=== PATIENT | male | born 1950 | race Caucasian/White ===

== ENCOUNTER 2018-02-22 09:53 | Emergency (ER) | payer OTHER, MEDICARE ==
[2018-02-22] MEDS ORDERED: FAMOTIDINE 20 MG/2 ML VIAL IV STA (10:20)
[2018-02-22] MEDS ORDERED: diphenhydrAMINE 50 MG/ML 1 ML VIAL IVP STA (10:20)
[2018-02-22] MEDS ORDERED: methylPREDNISolone SOD SUCCI 125 MG/2 ML VIAL IV STA (10:20)
[2018-02-22] MEDS ORDERED: RX INFO: IV CONTRAST WAS GIVEN 1 EACH MISC MISCELLANE PRN (10:20)
--- NOTE | 2018-02-22 10:23 | ED ---
General Adult HPI - General Chief complaint: Shortness of Breath Stated complaint: Chest tightness Time Seen by Provider: 02/22/18 10:00 Source: patient, RN notes reviewed, old records reviewed Mode of arrival: ambulatory Limitations: no limitations - History of Present Illness Initial comments: 67-year-old male presenting for evaluation of chest tightness. Pain began at rest on Thursday which is 3 days ago. Pain is been fairly constant since that time. Is associated with some dyspnea. No cough or fever. No abdominal pain. No nausea vomiting or diarrhea. Patient does report some pain in his shoulders. He has remote history of aortic dissection status post repair. Pain is not similar to his dissection. He was seen by his primary care physician this morning and sent to the ER for evaluation. - Related Data Home Medications Medication Instructions Recorded Confirmed Atenolol [Tenormin] 50 mg PO DAILY 07/05/14 02/22/18 Bumetanide [BUMEX] 1 mg PO DAILY 07/05/14 02/22/18 Fenofibrate,Micronized 134 mg PO DAILY 07/05/14 02/22/18 [Fenofibrate] Potassium Chloride [Klor-Con 10] 10 meq PO DAILY 07/05/14 02/22/18 amLODIPine BESYLATE/BENAZEPRIL 1 tab PO DAILY 07/05/14 02/22/18 [Amlodipine-Benazepril 5-20 mg] Apixaban [Eliquis] 5 mg PO BID 02/28/15 02/22/18 Peoa-3 Fatty Acids/Fish Oil [Fish 3,000 mg PO DAILY 02/28/15 02/22/18 Oil 1,000 mg Softgel] Aspirin 325 mg PO DAILY 02/22/18 02/22/18 Gabapentin [Neurontin] 600 mg PO TID 02/22/18 02/22/18 Allergies Allergy/AdvReac Type Severity Reaction Status Date / Time iodine Allergy Rash/Hives Verified 02/22/18 10:43 Review of Systems ROS Statement: Those systems with pertinent positive or pertinent negative responses have been documented in the HPI. ROS Other: All systems not noted in ROS Statement are negative. Past Medical History Past Medical History: Atrial Fibrillation, Hyperlipidemia, Hypertension, Osteoarthritis (OA) Additional Past Medical History / Comment(s): 03/08/15 Pt admitted to floor s/p Total L knee arthroplasty. Other HX: aortic aneursym, fx lt ribs & clavicle History of Any Multi-Drug Resistant Organisms: None Reported Past Surgical History: Cholecystectomy, Joint Replacement, Tonsillectomy Additional Past Surgical History / Comment(s): 03/08/15 -TKA, AAA repair, "top and bottom of heart" repair, pts. states he had aorta repair Past Anesthesia/Blood Transfusion Reactions: No Reported Reaction Past Psychological History: No Psychological Hx Reported Smoking Status: Former smoker Past Alcohol Use History: Occasional Past Drug Use History: None Reported - Past Family History Father Family Medical History: COPD Additional Family Medical History / Comment(s): Father of emphysema. He was a smoker. Mother Family Medical History: Congestive Heart Failure (CHF) Additional Family Medical History / Comment(s): Mother of CHF. General Exam Limitations: no limitations General appearance: alert, in no apparent distress Head exam: Present: atraumatic, normocephalic Eye exam: Present: normal appearance, PERRL, EOMI ENT exam: Present: normal exam Neck exam: Present: normal inspection. Absent: tenderness, meningismus Respiratory exam: Present: normal lung sounds bilaterally. Absent: respiratory distress, wheezes Cardiovascular Exam: Present: regular rate, irregular rhythm GI/Abdominal exam: Present: soft, distended. Absent: tenderness Extremities exam: Present: normal inspection, normal capillary refill. Absent: pedal edema, joint swelling, calf tenderness Back exam: Present: normal inspection, full ROM. Absent: tenderness Neurological exam: Present: alert, oriented X3, CN II-XII intact. Absent: motor sensory deficit Psychiatric exam: Present: normal affect, normal mood Skin exam: Present: warm, dry, intact. Absent: cyanosis, diaphoretic Course Vital Signs 02/22/18 02/22/18 02/22/18 09:56 10:47 13:07 Temperature 96.9 F L 97.5 F L Pulse Rate 71 67 82 Respiratory 26 H 20 19 Rate Blood Pressure 142/72 142/79 143/78 O2 Sat by Pulse 99 96 94 L Oximetry 02/22/18 14:16 Temperature Pulse Rate 81 Respiratory 18 Rate Blood Pressure 142/75 O2 Sat by Pulse 97 Oximetry - Reevaluation(s) Reevaluation #1: 02/22/18 14:26 On reevaluation, patient denies any symptoms, no dyspnea, no chest tightness. EKG Findings - EKG Comments: EKG Findings:: EKG, atrial fibrillation, rate of 71, QRS duration 92, QTC 445, no ST segment elevation, no definitive signs of ischemia. Medical Decision Making - Medical Decision Making 67-year-old male sent to the emergency department for 2 days of constant chest tightness and dyspnea. EKG shows no ST segment elevation or depression. Patient does have history of aortic dissection, CT angiography is obtained which shows a stable stent graft, with aortic dissection below the left common iliac with both true and false lumen. This is stable compared to previous CT. Distal pulses are intact. CBC is within normal limits. Troponin is negative, this is reassuring given the time course of his symptoms. BNP is elevated at 2000. Symptoms may be related to a degree of congestive heart failure. Chest x -ray negative for pulmonary edema, there is stable cardiomegaly. Case is discussed with the patient's primary care physician who knows patient well Dr. Aviles. Recommends IV Lasix and outpatient follow-up. Patient is agreeable with this plan, he is eager for discharge, he does not want admission.. - Lab Data Result diagrams: 02/22/18 10:33 02/22/18 10:33 Lab Results 02/22/18 02/22/18 02/22/18 Range/Units 10:33 10:33 10:33 WBC 8.2 (3.8-10.6) k/uL RBC 4.68 (4.30-5.90) m/uL Hgb 14.1 (13.0-17.5) gm/dL Hct 42.8 (39.0-53.0) % MCV 91.5 (80.0-100.0) fL MCH 30.1 (25.0-35.0) pg MCHC 32.9 (31.0-37.0) g/dL RDW 13.3 (11.5-15.5) % Plt Count 255 (150-450) k/uL Neutrophils % 75 % Lymphocytes % 16 % Monocytes % 6 % Eosinophils % 1 % Basophils % 0 % Neutrophils # 6.2 (1.3-7.7) k/uL Lymphocytes # 1.3 (1.0-4.8) k/uL Monocytes # 0.5 (0-1.0) k/uL Eosinophils # 0.1 (0-0.7) k/uL Basophils # 0.0 (0-0.2) k/uL PT (9.0-12.0) sec INR (<1.2) APTT (22.0-30.0) sec Sodium 143 (137-145) mmol/L Potassium 4.4 (3.5-5.1) mmol/L Chloride 107 (98-107) mmol/L Carbon Dioxide 22 (22-30) mmol/L Anion Gap 14 mmol/L BUN 17 (9-20) mg/dL Creatinine 0.60 L (0.66-1.25) mg/dL Est GFR (CKD-EPI)AfAm >90 (>60 ml/min/1.73 sqM) Est GFR (CKD-EPI)NonAf >90 (>60 ml/min/1.73 sqM) Glucose 111 H (74-99) mg/dL Calcium 9.9 (8.4-10.2) mg/dL Magnesium 1.7 (1.6-2.3) mg/dL Total Bilirubin 0.9 (0.2-1.3) mg/dL AST 18 (17-59) U/L ALT 21 (21-72) U/L Alkaline Phosphatase 49 (38-126) U/L Total Creatine Kinase 43 L (55-170) U/L CK-MB (CK-2) 0.5 (0.0-2.4) ng/mL CK-MB (CK-2) Rel Index 1.2 Troponin I <0.012 (0.000-0.034) ng/mL NT-Pro-B Natriuret Pep pg/mL Total Protein 7.2 (6.3-8.2) g/dL Albumin 3.7 (3.5-5.0) g/dL Lipase 57 (23-300) U/L 02/22/18 02/22/18 Range/Units 10:33 10:33 WBC (3.8-10.6) k/uL RBC (4.30-5.90) m/uL Hgb (13.0-17.5) gm/dL Hct (39.0-53.0) % MCV (80.0-100.0) fL MCH (25.0-35.0) pg MCHC (31.0-37.0) g/dL RDW (11.5-15.5) % Plt Count (150-450) k/uL Neutrophils % % Lymphocytes % % Monocytes % % Eosinophils % % Basophils % % Neutrophils # (1.3-7.7) k/uL Lymphocytes # (1.0-4.8) k/uL Monocytes # (0-1.0) k/uL Eosinophils # (0-0.7) k/uL Basophils # (0-0.2) k/uL PT 12.1 H (9.0-12.0) sec INR 1.3 H (<1.2) APTT 24.2 (22.0-30.0) sec Sodium (137-145) mmol/L Potassium (3.5-5.1) mmol/L Chloride (98-107) mmol/L Carbon Dioxide (22-30) mmol/L Anion Gap mmol/L BUN (9-20) mg/dL Creatinine (0.66-1.25) mg/dL Est GFR (CKD-EPI)AfAm (>60 ml/min/1.73 sqM) Est GFR (CKD-EPI)NonAf (>60 ml/min/1.73 sqM) Glucose (74-99) mg/dL Calcium (8.4-10.2) mg/dL Magnesium (1.6-2.3) mg/dL Total Bilirubin (0.2-1.3) mg/dL AST (17-59) U/L ALT (21-72) U/L Alkaline Phosphatase (38-126) U/L Total Creatine Kinase (55-170) U/L CK-MB (CK-2) (0.0-2.4) ng/mL CK-MB (CK-2) Rel Index Troponin I (0.000-0.034) ng/mL NT-Pro-B Natriuret Pep 1960 pg/mL Total Protein (6.3-8.2) g/dL Albumin (3.5-5.0) g/dL Lipase (23-300) U/L Disposition Clinical Impression: Congestive heart failure Disposition: HOME SELF-CARE Condition: Fair Instructions: Chest Pain (ED), Heart Failure (ED) Is patient prescribed a controlled substance at discharge?: No Referrals: Lyle Aviles MD [Primary Care Provider] - 1-2 days Time of Disposition: 14:05
[2018-02-22 10:49] LABS: Basophils % (A) 0 %; Eosinophils # (A) 0.1 k/uL (0-0.7); Eosinophils % (A) 1 %; HCT 42.8 % (39.0-53.0); HGB 14.1 gm/dL (13.0-17.5); Lymphocytes # (A) 1.3 k/uL (1.0-4.8); Lymphocytes % (A) 16 %; MCH 30.1 pg (25.0-35.0); MCHC 32.9 g/dL (31.0-37.0); MCV 91.5 fL (80.0-100.0); Mean Platelet Volume 7.6; Monocytes # (A) 0.5 k/uL (0-1.0); Monocytes % (A) 6 %; Neutrophils # (A) 6.2 k/uL (1.3-7.7); Neutrophils % (A) 75 %; Platelet Count 255 k/uL (150-450); RBC 4.68 m/uL (4.30-5.90); RDW 13.3 % (11.5-15.5); WBC 8.2 k/uL (3.8-10.6)
[2018-02-22 10:58] LABS: INR 1.3 (<1.2); Partial Thromboplastin Time 24.2 sec (22.0-30.0); Prothrombin Time 12.1 sec (9.0-12.0)
[2018-02-22 11:00] LABS: ALT 21 U/L (21-72); AST 18 U/L (17-59); Albumin 3.7 g/dL (3.5-5.0); Alkaline Phosphatase 49 U/L (38-126); Anion Gap 14 mmol/L; Blood Urea Nitrogen 17 mg/dL (9-20); Calcium 9.9 mg/dL (8.4-10.2); Carbon Dioxide 22 mmol/L (22-30); Chloride 107 mmol/L (98-107); Glucose 111 mg/dL (74-99); Lipase 57 U/L (23-300); Magnesium 1.7 mg/dL (1.6-2.3); Potassium 4.4 mmol/L (3.5-5.1); Sodium 143 mmol/L (137-145); Total Bilirubin 0.9 mg/dL (0.2-1.3); Total Protein 7.2 g/dL (6.3-8.2)
[2018-02-22 11:07] LABS: Creatine Kinase 43 U/L (55-170)
--- NOTE | 2018-02-22 11:07 | XR ---
EXAMINATION TYPE: XR chest 1V portable DATE OF EXAM: 02/22/2018 COMPARISON: Prior chest x-ray 07/06/2014 HISTORY: Chest pain TECHNIQUE: Single frontal view of the chest is obtained. FINDINGS: Patient is rotated. Patient is post median sternotomy and there are overlying cardiac lead s. Multiple left-sided rib fractures are present which are chronic. Heart is enlarged. No evident pne umothorax or sizable effusion. No evident pneumonia. IMPRESSION: Stable cardiomegaly. Postop and posttraumatic changes.
[2018-02-22 11:19] LABS: Troponin I <0.012 ng/mL (0.000-0.034)
[2018-02-22 11:37] LABS: Creatine Kinase MB 0.5 ng/mL (0.0-2.4)
--- NOTE | 2018-02-22 12:31 | CT ---
EXAMINATION TYPE: CT angio thoracic/abd aorta DATE OF EXAM: 02/22/2018 COMPARISON: CT chest July 05, 2014. CT abdomen and pelvis January 25, 2012. Older CT chest abdomen an d pelvis study February 01, 2010. HISTORY: History of AAA and repair. Mid chest pain x [address] DLP: 3395.7 mGycm. Automated Exposure Control for Dose Reduction was Utilized. CONTRAST: CTA scan of the thorax, abdomen and pelvis is performed without oral and without and with IV Contrast , patient injected with 100 mL of Isovue 370. Three-D reconstructed images are created on independent workstation and reviewed. FINDINGS: VASCULAR: There is peripheral density in the ascending aorta extending into arch likely reflecting pr ior stent graft placement. Peripheral curvilinear density likely reflecting stent graft extension int o right brachiocephalic and common carotid arteries is identified. Adjacent clips are seen. There is ectasia of the ascending aorta measuring up to 4.2 cm transversely axial image 28. There is ectasia o f the aortic arch and descending aorta. There is mild calcified plaque in the descending aorta. Perip heral hypodensity in the descending thoracic aorta likely reflects stent graft, less likely noncalcif ied plaque given fairly uniform appearance. 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 This measures up to 4.[address] axial image 67. Distal abdominal aorta shows anterior linear density with curvilinear calcificati on correlating with a dissection extending into common iliac arteries bilaterally with extension into the left external iliac artery noted. Surgical clips left groin region are identified. There is dens ity or vascular flow anterior and posterior to dissection flap. Surgical clips right groin region are seen. Overlying sternal wires are seen. LUNGS: There are small to tiny bilateral pleural effusions. There is associated right basilar darrick sive atelectasis. No pneumothorax is seen bilaterally. Mild central peribronchial wall thickening is present. MEDIASTINUM: There are no greater than 1 cm hilar or mediastinal lymph nodes. No pericardial effusi on is seen. Mild cardiomegaly with three-vessel coronary artery calcification is present. OTHER: Bilateral gynecomastia is seen. Multiple old left-sided rib fracture deformities are redemonst rated LIVER/GB: Cholecystectomy clips are noted. PANCREAS: No significant abnormality is seen. SPLEEN: No significant abnormality is seen. ADRENALS: No significant abnormality is seen. KIDNEYS: There are several simple appearing cysts throughout both kidneys, largest is exophytic upper pole level right kidney measuring approximately 10 x 11 cm axial image 63. BOWEL: Some diverticula are seen throughout the colon most prominent at the sigmoid colon. There is n o CT evidence for acute diverticulitis. GENITAL ORGANS: No gross abnormality seen. LYMPH NODES: No greater than 1cm abdominal or pelvic lymph nodes are appreciated. OSSEOUS STRUCTURES: Fairly moderate multilevel spurring in the thoracolumbar spine is present. OTHER: Surgical clips and phleboliths right pelvis are noted above prostate gland. IMPRESSION: There is overall stable appearance of stent graft believed to be beginning near aortic ar ch origin extending through entire thoracic aorta to the mid abdominal aorta at level of renal arteri es from 2014 CT no obvious change is present. There is a aortic dissection below this extending to l eft common iliac and left external iliac artery that shows patency of both false and true lumens. Acc ounting for technical differences this portion does not have significant change from February 01, 2010 Emelina Damian
[2018-02-22] MEDS ORDERED: FUROSEMIDE 10 MG/ML 4 ML VIAL IV STA (13:47)
[2018-02-22 14:57] VITALS: BP 137/70; PULSE 75; RESP 16; TEMP 97.7
== END 2018-02-22 15:01 | disposition home or self-care (01) ==
LOC: EC 09:53
DX: I50.9 Heart failure, unspecified (principal); I11.0 Hypertensive heart disease with heart failure; I48.91 Unspecified atrial fibrillation; E78.5 Hyperlipidemia, unspecified; Z87.891 Personal history of nicotine dependence; Z79.01 Long term (current) use of anticoagulants; Z79.899 Other long term (current) drug therapy; Z88.8 Allergy status to other drugs, medicaments and biological substances; Z82.49 Family history of ischemic heart disease and other diseases of the circulatory system
CPT/HCPCS: 36415; 93005; 83880; 80053; 82550; 82553; 83690; 83735; 84484; 85025; 85610; 85730; 71045; 75635; 71275; 99285; 96374; 96375 ×3; J1200; J1940; J2930; Q9967

== ENCOUNTER → 2018-09-02 | Outpatient (CLI) | payer MEDICARE, BC ==
[2018-09-02 10:37] LABS: Basophils % (A) 1 %; Eosinophils # (A) 0.1 k/uL (0-0.7); Eosinophils % (A) 2 %; HCT 44.7 % (39.0-53.0); HGB 14.8 gm/dL (13.0-17.5); Lymphocytes # (A) 1.3 k/uL (1.0-4.8); Lymphocytes % (A) 18 %; MCH 31.6 pg (25.0-35.0); MCHC 33.1 g/dL (31.0-37.0); MCV 95.5 fL (80.0-100.0); Monocytes # (A) 0.5 k/uL (0-1.0); Monocytes % (A) 7 %; Neutrophils % (A) 71 %; Platelet Count 263 k/uL (150-450); RBC 4.68 m/uL (4.30-5.90)
[2018-09-02 10:55] LABS: INR 1.1 (<1.2)
[2018-09-02 10:59] LABS: Anion Gap 8 mmol/L; Blood Urea Nitrogen 18 mg/dL (9-20); Calcium 9.8 mg/dL (8.4-10.2); Carbon Dioxide 27 mmol/L (22-30); Chloride 103 mmol/L (98-107); Glucose 105 mg/dL (74-99); Potassium 4.7 mmol/L (3.5-5.1); Sodium 138 mmol/L (137-145)
== END | disposition home or self-care (01) ==
LOC: LABWHC1 10:04
PROVIDERS: ATTEND Internal Medicine
DX: Z01.812 Encounter for preprocedural laboratory examination (principal); I25.10 Atherosclerotic heart disease of native coronary artery without angina pectoris
CPT/HCPCS: 36415; 80048; 85025; 85027; 85610

== ENCOUNTER 2020-12-22 13:27 | Emergency (ER) | payer MEDICARE, BC ==
[2020-12-22 13:33] VITALS: TEMP 97.7
[2020-12-22] MEDS ORDERED: ONDANSETRON 4 MG/2 ML VIAL IVP STA (13:58)
[2020-12-22] MEDS ORDERED: MORPHINE SULFATE 4 MG/ML SYRINGE IV STA (13:58)
[2020-12-22] MEDS ORDERED: GABAPENTIN 300 MG CAP PO STA (13:59)
--- NOTE | 2020-12-22 14:02 | ED ---
Fall HPI - General Chief Complaint: Fall Stated Complaint: Fall, face lac Source: family, RN notes reviewed Mode of arrival: ambulatory - History of Present Illness Initial Comments: Patient is a 70-year-old male that presents to the emergency department via EMS status post fall. He noted that he slipped on some ice and then fell on his face on the concrete driveway. He noted that he sustained several lacerations to his glasses hitting his face. He has a large hematoma on the left brow ridge. Patient is alert and oriented but appears to be in moderate amount of pain. He noted that the pain was a 10 out of 10 on a scale and would like some pain medication. His noted that he missed his dose of gabapentin for the afternoon. Patient was made aware that he would need a computed tomography scan of his brain and C-spine and facial bones to make sure there is no bleeding breaks or concerns. He denied any chest pain shortness of breath nausea vomiting diarrhea constipation fever fatigue chills. - Related Data Home Medications Medication Instructions Recorded Confirmed Bumetanide [BUMEX] 1 mg PO DAILY 07/05/14 12/22/20 Potassium Chloride [Klor-Con 10] 10 meq PO Q48H 07/05/14 12/22/20 amLODIPine BESYLATE/BENAZEPRIL 1 tab PO DAILY 07/05/14 12/22/20 [Amlodipine-Benazepril 5-20 mg] Apixaban [Eliquis] 5 mg PO BID 02/28/15 12/22/20 Gabapentin [Neurontin] 600 mg PO TID 02/22/18 12/22/20 Aspirin EC [Ecotrin Low Dose] 81 mg PO DAILY 12/22/20 12/22/20 Carvedilol [Coreg] 18.75 mg PO BID 12/22/20 12/22/20 Rosuvastatin Calcium [Crestor] 5 mg PO DAILY 12/22/20 12/22/20 Allergies Allergy/AdvReac Type Severity Reaction Status Date / Time iodine Allergy Rash/Hives Verified 12/22/20 14:33 Review of Systems ROS Statement: Those systems with pertinent positive or pertinent negative responses have been documented in the HPI. ROS Other: All systems not noted in ROS Statement are negative. Past Medical History Past Medical History: Atrial Fibrillation, Hyperlipidemia, Hypertension, Osteoarthritis (OA) Additional Past Medical History / Comment(s): 03/08/15 Pt admitted to floor s/p Total L knee arthroplasty. Other HX: aortic aneursym, fx lt ribs & clavicle 07/07/14. Pre diabetes History of Any Multi-Drug Resistant Organisms: None Reported Past Surgical History: Cholecystectomy, Joint Replacement, Tonsillectomy Additional Past Surgical History / Comment(s): 03/08/15 -TKA, AAA repair, "top and bottom of heart" repair, pts. states he had aorta repair Past Anesthesia/Blood Transfusion Reactions: No Reported Reaction Past Psychological History: No Psychological Hx Reported Smoking Status: Former smoker Past Alcohol Use History: Occasional Past Drug Use History: None Reported - Past Family History Father Family Medical History: COPD Additional Family Medical History / Comment(s): Father of emphysema. He was a smoker. Mother Family Medical History: Congestive Heart Failure (CHF) Additional Family Medical History / Comment(s): Mother of CHF. General Exam Limitations: no limitations General appearance: alert, in no apparent distress Head exam: Present: atraumatic, normocephalic, normal inspection Eye exam: Present: normal appearance, PERRL, EOMI, other (Moderate sized hematoma to brow ridge of left eye.). Absent: scleral icterus, conjunctival injection, periorbital swelling ENT exam: Present: normal exam, mucous membranes moist, other (Several small lacerations noted across the nose.) Neck exam: Present: normal inspection, other (Patient was in c-collar but noted that his neck did not hurt.). Absent: tenderness, meningismus, lymphadenopathy Respiratory exam: Present: normal lung sounds bilaterally. Absent: respiratory distress, wheezes, rales, rhonchi, stridor Cardiovascular Exam: Present: regular rate, normal rhythm, normal heart sounds. Absent: systolic murmur, diastolic murmur, rubs, gallop, clicks GI/Abdominal exam: Present: soft, normal bowel sounds. Absent: distended, tenderness, guarding, rebound, rigid Extremities exam: Present: normal inspection, full ROM, normal capillary refill. Absent: tenderness, pedal edema, joint swelling, calf tenderness Back exam: Present: normal inspection Neurological exam: Present: alert, oriented X3, CN II-XII intact Psychiatric exam: Present: normal affect, normal mood Skin exam: Present: warm, dry, intact, normal color, abrasion (Several abrasions scattered across the nose and left side of the face.). Absent: rash Course Vital Signs 12/22/20 13:30 Temperature 97.7 F Pulse Rate 84 Respiratory 24 Rate Blood Pressure 155/84 O2 Sat by Pulse 99 Oximetry Medical Decision Making - Medical Decision Making 70-year-old male presenting emergency department with facial trauma after a sudden fall. CT of C-spine and brain and facial bones ordered, came back with nasal bone fracture. Pain medication ordered and given. Several abrasions and skin tears scattered across the face not needing sutures. Case discussed with Dr. Greer, it was decided the patient discharged home - Radiology Data Radiology results: report reviewed, image reviewed Nasal bone fracture frontal scalp hematoma. Otherwise no acute intracranial or cervical spine abnormality. Disposition Clinical Impression: Fall, Nasal bone fracture, Facial trauma Disposition: HOME SELF-CARE Condition: Stable Instructions (If sedation given, give patient instructions): Nasal Fracture (ED), Fall Prevention for Older Adults (ED) Additional Instructions: Please return to the Emergency Department if symptoms worsen or any other concerns. Take pain medication as prescribed. Follow-up with primary care 1-2 days. Follow-up with ENT if possible Is patient prescribed a controlled substance at d/c from ED?: Yes When asked, does pt state using other controlled substances?: Yes If prescribed controlled substance>3 days was MAPS reviewed?: Prescribed <3 Days If opioid is for acute pain is fill amount 7 days or less?: Yes Referrals: Virginia Villafuerte MD [Primary Care Provider] - 1-2 days Timmy Felder DO [Doctor of Osteopathic Medicine] - 1-2 days Time of Disposition: 15:28
[2020-12-22] MEDS ORDERED: DIPH,PERTUS(ACELL)TETVAC-LF 0.5 ML VIAL IM ONE (14:36)
--- NOTE | 2020-12-22 14:38 | CT ---
EXAMINATION TYPE: CT brain cspine wo con, CT facial bones wo con DATE OF EXAM: 12/22/2020 COMPARISON: None available. HISTORY: Fall with facial trauma. Fell face forward in driveway (accession [id number]), Fall with faci al trauma; Fall forward onto driveway (accession [id number]) CT DLP: 1186.4 mGycm Automated exposure control for dose reduction was used. TECHNIQUE: CT scan of the head and cervical spine are performed without contrast. Axial CT images of the facial bones was performed without contrast. FINDINGS: There is no acute intracranial hemorrhage, mass effect, or midline shift identified. The ventricles and sulci are within normal limits in size. The globes are intact and the visualized sinuses are jvai ar. There is moderate anterior left frontal scalp hematoma. Otherwise calvarium is intact. Cervical spine is visualized in its entirety from C1 through upper thoracic levels and demonstrates s atisfactory alignment without evidence of acute fracture or dislocation. Prevertebral soft tissue ap pears within normal limits. The C1-C2 articulation is unremarkable. There is multilevel moderate ce rvical spondylosis. Maxillofacial: There is mildly comminuted and displaced fractures of the bilateral nasal bones. There is overlying soft tissue edema. Otherwise the zygomatic arch, the globes, mandibles and pterygoid pl ates are intact. IMPRESSION: Nasal bone fracture and frontal scalp hematoma. Otherwise no acute intracranial or cervical spine abnormality.
[2020-12-22] MEDS ORDERED: BACITRACIN OINT 1 EACH PACKET TOPICAL ONE (15:07)
[2020-12-22] MEDS ORDERED: ACET/COD 300 MG/30 MG STARTER PACK 6 TAB BTL PO STA (15:26)
[2020-12-22 15:42] VITALS: BP 171/86; PULSE 63; RESP 18
== END 2020-12-22 16:00 | disposition home or self-care (01) ==
LOC: EC 13:27
DX: S02.2XXA Fracture of nasal bones, initial encounter for closed fracture (principal); S01.81XA Laceration without foreign body of other part of head, initial encounter; I10 Essential (primary) hypertension; I48.91 Unspecified atrial fibrillation; M19.90 Unspecified osteoarthritis, unspecified site; E78.5 Hyperlipidemia, unspecified; Z79.01 Long term (current) use of anticoagulants; Z79.899 Other long term (current) drug therapy; Z79.82 Long term (current) use of aspirin; Z91.048 Other nonmedicinal substance allergy status; Z96.652 Presence of left artificial knee joint; Z23 Encounter for immunization; Z87.891 Personal history of nicotine dependence; W00.0XXA Fall on same level due to ice and snow, initial encounter; Y92.009 Unspecified place in unspecified non-institutional (private) residence as the place of occurrence of the external cause
CPT/HCPCS: 99283; 90471; 96374; 96375; 72125; 70486; 70450; 90715; J2270; J2405

== ENCOUNTER → 2020-12-31 | Outpatient (CLI) | payer MEDICARE, BC ==
[2020-12-31 08:34] VITALS: BP 126/84; PULSE 72; RESP 18; TEMP 97.5
--- NOTE | 2020-12-31 08:34 | P.CONS ---
History of Present Illness - Reason for Consult Consult date: 12/31/20 - Chief Complaint Left chest wall pain - History of Present Illness this is a 70-year-old gentleman with history of left chest wall pain which started in 2012 after he received his third thoracic and abdominal aortic aneurysm repair through a thoracoabdominal incision. The patient describes his pain as heaviness in his chest which gets worse with activity and also wakes him up at night. The patient has b taking Neurontin 600 mg 3 times a day which does not control his pain well. He denies any history of COPD however he did smoke previously but quit smoking in 2006.the patient has never tried any intervention pain procedures previously.the patient feels numbness and tingling around his incision area. Past Medical History Past Medical History: Atrial Fibrillation, Hyperlipidemia, Hypertension, Osteoarthritis (OA) Additional Past Medical History / Comment(s): PT FELL ON ICE 12/22/20 FX NOSE AND MANY MINOR LACERATIONS TO FACE. BRUISING Other HX: aortic aneursym History of Any Multi-Drug Resistant Organisms: None Reported Past Surgical History: Cholecystectomy, Coronary Bypass/CABG, Joint Replacement, Tonsillectomy Additional Past Surgical History / Comment(s): RT TKA, AAA repair, "top and bottom of heart" repair, pts. states he had aorta repair, COLONOSCOPY Past Anesthesia/Blood Transfusion Reactions: No Reported Reaction Smoking Status: Former smoker - Past Family History Father Family Medical History: COPD Additional Family Medical History / Comment(s): Father of emphysema. He was a smoker. Mother Family Medical History: Congestive Heart Failure (CHF) Additional Family Medical History / Comment(s): Mother of CHF. Medications and Allergies Home Medications Medication Instructions Recorded Confirmed Type Bumetanide [BUMEX] 1 mg PO DAILY 07/05/14 12/26/20 History Potassium Chloride [Klor-Con 10] 10 meq PO Q48H 07/05/14 12/26/20 History amLODIPine BESYLATE/BENAZEPRIL 1 tab PO DAILY 07/05/14 12/26/20 History [Amlodipine-Benazepril 5-20 mg] Apixaban [Eliquis] 5 mg PO BID 02/28/15 12/26/20 History Gabapentin [Neurontin] 600 mg PO TID 02/22/18 12/26/20 History Aspirin EC [Ecotrin Low Dose] 81 mg PO DAILY 12/22/20 12/26/20 History Carvedilol [Coreg] 18.75 mg PO BID 12/22/20 12/26/20 History Rosuvastatin Calcium [Crestor] 5 mg PO DAILY 12/22/20 12/26/20 History Allergies Allergy/AdvReac Type Severity Reaction Status Date / Time iodine Allergy Rash/Hives Verified 12/26/20 14:48 Physical Exam - Constitutional General appearance: cooperative, morbidly obese, no acute distress - Neurologic there is a long well-healed. The abdominal incision on the left side of the torso. There is no allodynia to touch around the incision. There is mild tenderness on the lateral ribs area. - Psychiatric Psychiatric: A&O x's 3, appropriate affect, intact judgment & insight Assessment and Plan Plan: this is a 70-year-old gentleman who denies any history of diabetes or coronary artery disease however he did have multiple surgeries to repair his tho racoabdominal aneurysm using a thoracoabdominal incision on the left side of his torso. The patient may have a combination of neuropathic and musculoskeletal pain. Differential diagnoses include: Left intercostal neuralgia Myofascial pain I spoke with the patient about 2 options the first one is medically by using stronger pain medications including tramadol or [place] and/or doing intercostal nerve block. The patient prefers to start by medical management and for that I'm going to put him on tramadol 50 mg twice a day along with the same dose of Neurontin which is 1800 mg a day. The side effects of tramadol were discussed with the patient including constipation, dependence, difficulty breathing and the patient was agreeable to watch of these side effects and let us know as soon as they have been. We will see the patient on monthly basis for reevaluation. I thank you for the consultation
== END | disposition home or self-care (01) ==
LOC: PNWHC3 07:54
PROVIDERS: ATTEND Anesthesiology
DX: M79.18 Myalgia, other site (principal); G58.8 Other specified mononeuropathies; Z79.82 Long term (current) use of aspirin; Z79.891 Long term (current) use of opiate analgesic; Z79.01 Long term (current) use of anticoagulants; Z91.041 Radiographic dye allergy status
CPT/HCPCS: 99211

== ENCOUNTER → 2021-01-28 | Outpatient (CLI) | payer MEDICARE, BC ==
[2021-01-28 09:34] VITALS: BP 177/89; PULSE 70; RESP 18; TEMP 97.4
--- NOTE | 2021-01-28 09:52 | P.PN ---
Subjective Progress Note Date: 01/28/21 this is a 70-year-old gentleman with history of left chest wall pain which started in 2012 after he received his third thoracic and abdominal aortic aneurysm repair through a thoracoabdominal incision. The patient describes his pain as heaviness in his chest which gets worse with activity and also wakes him up at night. The patient has b taking Neurontin 600 mg 3 times a day which does not control his pain well. He denies any history of COPD however he did smoke previously but quit smoking in 2006.the patient has never tried any intervention pain procedures previously.the patient feels numbness and tingling around his incision area. The patient prefers to do medical treatment and said of trying procedures for this pain and that's why we tried tramadol on him however tramadol did not help his pain at all as he states. Past Medical History Past Medical History: Atrial Fibrillation, Hyperlipidemia, Hypertension, Osteoarthritis (OA) Additional Past Medical History / Comment(s): PT FELL ON ICE 12/22/20 FX NOSE AND MANY MINOR LACERATIONS TO FACE. BRUISING Other HX: aortic aneursym History of Any Multi-Drug Resistant Organisms: None Reported Past Surgical History: Cholecystectomy, Coronary Bypass/CABG, Joint Replacement, Tonsillectomy Additional Past Surgical History / Comment(s): RT TKA, AAA repair, "top and bottom of heart" repair, pts. states he had aorta repair, COLONOSCOPY Past Anesthesia/Blood Transfusion Reactions: No Reported Reaction Smoking Status: Former smoker Patient denies new-onset weakness, bowel/bladder incontinence, or any other signs or symptoms of cauda equina syndrome. There are no signs of acute intox ication, and no indications of medication diversion or overuse. In addition to above, 13-point review of systems is also negative for chest pain, shortness of breath, changes in vision, changes in hearing, new onset weakness, abdominal pain, diarrhea, extreme fatigue, malaise, fever, skin changes, homicidal or suicidal ideation, or bowel or bladder incontinence. Vital Signs: Reviewed in EMR Gen: AAOx3, NAD HEENT: PERRLA,hearing grossly normal Pulm: resp unlabored Neck: supple, trachea midline Postoperative tenderness in the left side of her chest wall Imaging: Reviewed in EMR/chart Assessment: Left chest wall pain due to previous surgery Myofascial pain Possible intercostal neuralgia Plan: 1. Explanation: Opioid and psychological risk scores were reviewed. Diagnoses, prognoses, and multiple treatment options including but not limited to physical therapy, interventional therapies, adjuvant medical therapies, narcotic medication therapies, and surgery were discussed with the patient and all questions were answered to the patient's satisfaction. 2. Opioid agreement: Signed with the patient and the patient is warned not to use opioids while driving or before driving and not to combine opioids with benzodiazepines or alcohol. 3. Counseling: The patient was counseled extensively on SMOKING CESSATION, BODY MASS INDEX, EXERCISE. Specifically, the patient was instructed regarding the importance of smoking cessation, obesity, and exercise in the context of both chronic pain and overall health. 4. Procedures: Patient would like to hold off on procedure for now, but he might benefit from a diagnostic intercostal nerve block in the future 5. Consultations: None 6. Investigations: None 7. Medications: We will start the tramadol and I will try him on [place] 5 mg 3 times a day as needed for pain. The patient still takes Neurontin 1800 mg a day prescribed by his primary care physician. 8. Disposition: Return to clinic in 4 weeks 9. Maps were reviewed and were appropriate. Controlled Substance Measures Is patient prescribed a controlled substance at discharge?: Yes When asked, does pt state using other controlled substances?: No If prescribed controlled substance>3 days was MAPS reviewed?: Yes If Rx opioid, was Start Talking consent form obtained?: Yes If opioid is for acute pain is fill amount 7 days or less?: No Was information provided regarding opioid addiction?: Yes Objective - Vital Signs Vital signs: Vital Signs Temp 97.4 F L 01/28/21 09:31 Pulse 70 01/28/21 09:31 Resp 18 01/28/21 09:31 BP 177/89 01/28/21 09:31 Pulse Ox 98 01/28/21 09:31
== END ==
LOC: PNWHC3 09:20
PROVIDERS: ATTEND Anesthesiology
DX: G89.18 Other acute postprocedural pain (principal); M19.90 Unspecified osteoarthritis, unspecified site; M79.18 Myalgia, other site; I48.91 Unspecified atrial fibrillation; I10 Essential (primary) hypertension; E78.5 Hyperlipidemia, unspecified; Z87.891 Personal history of nicotine dependence; Z95.1 Presence of aortocoronary bypass graft
CPT/HCPCS: 99211

== ENCOUNTER → 2021-02-25 | Outpatient (CLI) | payer MEDICARE, BC ==
--- NOTE | 2021-02-25 09:19 | P.PN ---
Subjective Progress Note Date: 02/25/21 This is a follow-up visit for this 70 years old male with a chronic history of severe left-sided thoracic and left-sided upper abdominal wall pain, started after he had thoracic and abdominal aneurysm repair, he reported that the pain is constant, severe interfere with the quality of life, he is on Neurontin 600 mg 3 times a day and started last visit on [place] 5/325 every 8 hours, that the current medication helping him to control his pain, he denies any side effects of the medication, denies any excessive drowsiness or sleepiness, he denies any constipation Objective - Exam Physical Examinations : -Constitutiona : Cooperative , not in acute distress . -HEENT : nech : supple , no Lymphadenopathy , normal thyroid size . : eyes : no ptosis , no icterus, no photophobia . - neurologic : Cranial nerve II to XII intact , no focal neurological deffecit . -psychatric : alert , oriented X 3 , appropriate affect , intact judgment and insight . -Lymphatic : no Lymphadenopathy . - musculoskeltal : Tenderness over the left side chest wall Allodynia on the left upper quadrant abdominal wall midlines thoracoabdominal incision healed appropriately, no discharge and no erythema, no swelling Lateral thoracoabdominal incision healed appropriately, no discharge, no erythema, no swelling Lumber spine moter stegnth lower extremities ,thigh and legs 5/5 Right side , 5/5 Left side Assessment and Plan Plan: Assessment and plan= Left intercostal neuralgia chronic and current use of high-risk medication (opioids) Patient denies any side effects of the current pain medication and the current treatment/medication helping the patient to do activity of daily living , Diagnoses, prognosis, treatment options, including but not limited to physical therapy, medication management, interventional therapies, and surgery, were discussed with the patient All the questions answered The narcotic consent was signed and patient agreed and understood the side effects and complications of opioid treatment. Patient signed the narcotic agreement, and was orally counseled, not to overuse, not to abuse, not to Divert , not tp sell pain medication, and to take it as prescribed only, Patient was counseled not to drive or operate heavy equipment while using narcotic medication, and advised not to use alcohol or any Illicit drugs while using the narcotis. understanding that lack of compliance with any of the above instructions, will likely to cause discharge from, the pain service, not to renew his narcotic prescriptions MAPS Reviwed and it was apropriate . Medication managements= patient will be given prescription refills for [place] 5/325 every 8 hours dispense 90 with 1 refill Urine drug screen ordered today . - PQRS measures = - Patient's medications are documented in the chart. -Tobacco use is ,negative and counseling.Given. -Patient's has not received pneumococcal vaccine. -Advanced care planning discussed, patient not eligible. -Opiate contract signed. -Pain positive and follow-up visit/procedure is scheduled. -Patient's blood pressure measured [ 149/81] , and documented in the record ,and patient will follow up with the primary care. -Patient's weight was measured and body mass index [ 37.1 ] above the normal limits and counseling was done. and patient instructed to follow-up with the primary care physician. -Patient was not identified as an unhealthy alcohol user Time with Patient: Less than 30
[2021-02-25 09:38] VITALS: BP 149/81; PULSE 79; RESP 18; TEMP 96.6
[2021-02-26 11:01] LABS: Serum Amphetamine Negative; Serum Barbiturates Negative; Serum Benzodiazepine Negative; Serum Cocaine Negative; Serum Methadone Negative; Serum Opiates Negative; Serum Phencyclidine Negative; Serum Propoxyphene Negative; Serum THC (Cannabis) Negative
== END ==
LOC: PNWHC3 08:52
PROVIDERS: ATTEND Specialist
DX: G58.0 Intercostal neuropathy (principal); Z79.891 Long term (current) use of opiate analgesic
CPT/HCPCS: 80307; G0463; 99211; 99212

== ENCOUNTER → 2021-04-22 | Outpatient (CLI) | payer MEDICARE, BC ==
[2021-04-22 09:39] VITALS: BP 174/94; PULSE 68; RESP 18; TEMP 97.5
--- NOTE | 2021-04-22 10:08 | P.PN ---
Subjective Progress Note Date: 04/22/21 This is a follow-up visit for this 70 years old male with a chronic history of severe left-sided thoracic and left-sided upper abdominal wall pain, started after he had thoracic and abdominal aneurysm repair, he reported that the pain is constant, severe interfere with the quality of life, he is currently on Neurontin 600 mg 3 times a day, and [place] 5/325 every 8 hours, that the current medication helping him to control his pain, he denies any side effects of the medication, denies any excessive drowsiness or sleepiness, he denies any constipation, he denies any excessive drowsiness and sleepiness, Physical Examinations : -Constitutiona : Cooperative , not in acute distress . -HEENT : nech : supple , no Lymphadenopathy , normal thyroid size . : eyes : no ptosis , no icterus, no photophobia . - neurologic : Cranial nerve II to XII intact , no focal neurological deffecit . -psychatric : alert , oriented X 3 , appropriate affect , intact judgment and insight . -Lymphatic : no Lymphadenopathy . - musculoskeltal : Tenderness over the left side chest wall Allodynia on the left upper quadrant abdominal wall midlines thoracoabdominal incision healed appropriately, no discharge and no erythema, no swelling Lateral thoracoabdominal incision healed appropriately, no discharge, no erythema, no swelling Lumber spine moter stegnth lower extremities ,thigh and legs 5/5 Right side , 5/5 Left side Assessment and plan= Left intercostal neuralgia chronic and current use of high-risk medication (opioids) Patient denies any side effects of the current pain medication and the current treatment/medication helping the patient to do activity of daily living , Diagnoses, prognosis, treatment options, including but not limited to physic al therapy, medication management, interventional therapies, and surgery, were discussed with the patient All the questions answered The narcotic consent was signed and patient agreed and understood the side effects and complications of opioid treatment. Patient signed the narcotic agreement, and was orally counseled, not to overuse, not to abuse, not to Divert , not tp sell pain medication, and to take it as prescribed only, Patient was counseled not to drive or operate heavy equipment while using narcotic medication, and advised not to use alcohol or any Illicit drugs while using the narcotis. understanding that lack of compliance with any of the above instructions, will likely to cause discharge from, the pain service, not to renew his narcotic prescriptions MAPS Reviwed and it was apropriate . Medication managements= patient will be given prescription refills for [place] 5/325 every 8 hours dispense 90 with 1 refill Neurontin 600 mg every 8 hours dispense 90 Toxicology screen checked today=it was ok . - PQRS measures = - Patient's medications are documented in the chart. -Tobacco use is ,negative and counseling.Given. -Patient's has not received pneumococcal vaccine. -Advanced care planning discussed, patient not eligible. -Opiate contract signed. -Pain positive and follow-up visit/procedure is scheduled. -Patient's blood pressure measured [ 174/94] , and documented in the record ,and patient will follow up with the primary care. -Patient's weight was measured and body mass index [ 36.9 ] above the normal limits and counseling was done. and patient instructed to follow-up with the primary care physician. -Patient was not identified as an unhealthy alcohol user Objective - Vital Signs Vital signs: Vital Signs Temp 97.5 F L 04/22/21 09:34 Pulse 68 04/22/21 09:34 Resp 18 04/22/21 09:34 BP 174/94 04/22/21 09:34 Pulse Ox 98 04/22/21 09:34
== END | disposition home or self-care (01) ==
LOC: PNWHC3 09:22
PROVIDERS: ATTEND Specialist
DX: M79.2 Neuralgia and neuritis, unspecified (principal); Z79.899 Other long term (current) drug therapy; Z79.891 Long term (current) use of opiate analgesic
CPT/HCPCS: 99211

== ENCOUNTER → 2021-06-17 | Outpatient (CLI) | payer MEDICARE, BC ==
--- NOTE | 2021-06-17 09:50 | P.PAINPG ---
Subjective Progress Note Date: 06/17/21 This is a follow-up visit for this 70 years old male with a chronic history of severe left-sided thoracic and left-sided upper abdominal wall pain, started after he had thoracic and abdominal aneurysm repair, he reported that the pain is constant, severe interfere with the quality of life, he is currently on Neurontin 600 mg 3 times a day, and [place] 5/325 every 8 hours, that the current medication helping him to control his pain, he denies any side effects of the medication, denies any excessive drowsiness or sleepiness, he denies any constipation, he denies any excessive drowsiness and sleepiness, he is doing well and there are no changes in his health or symptoms. Physical Examinations : -Constitutiona : Cooperative , not in acute distress . -HEENT : nech : supple , no Lymphadenopathy , normal thyroid size . : eyes : no ptosis , no icterus, no photophobia . - neurologic : Cranial nerve II to XII intact , no focal neurological deffecit . -psychatric : alert , oriented X 3 , appropriate affect , intact judgment and insight . -Lymphatic : no Lymphadenopathy . - musculoskeltal : Tenderness over the left side chest wall Allodynia on the left upper quadrant abdominal wall midlines thoracoabdominal incision healed appropriately, no discharge and no erythema, no swelling Lateral thoracoabdominal incision healed appropriately, no discharge, no erythema, no swelling Lumber spine moter stegnth lower extremities ,thigh and legs 5/5 Right side , 5/5 Left side Assessment and plan= Left intercostal neuralgia chronic and current use of high-risk medication (opioids) Patient denies any side effects of the current pain medication and the current treatment/medication helping the patient to do activity of daily living , Diagnoses, prognosis, treatment options, including but not limited to physical therapy, medication management, interventional therapies, and surgery, were discussed with the patient All the questions answered The narcotic consent was signed and patient agreed and understood the side effects and complications of opioid treatment. Patient signed the narcotic agreement, and was orally counseled, not to overuse, not to abuse, not to Divert , not tp sell pain medication, and to take it as prescribed only, Patient was counseled not to drive or operate heavy equipment while using narcotic medication, and advised not to use alcohol or any Illicit drugs while using the narcotis. understanding that lack of compliance with any of the above instructions, will likely to cause discharge from, the pain service, not to renew his narcotic prescriptions MAPS Reviwed and it was apropriate . Medication managements= patient will be given prescription refills for [place] 5/325 every 8 hours dispense 90 with 1 refill Neurontin 600 mg every 8 hours dispense 270 for 90 days. He requested this due to it being cheaper in terms of his insurance reimbursing. I have spent 25 minutes on patient care today. The time was used to review the medical records including relevant urine studies and Prescription history (MAPs), review of the available imaging, evaluation and examination of the patient, coordination of care with the medical staff and if applicable referring physicians, as well as creation of the medical record. - PQRS measures = - Patient's medications are documented in the chart. -Tobacco use is ,negative and counseling.Given. -Patient's has not received pneumococcal vaccine. -Advanced care planning discussed, patient not eligible. -Opiate contract signed. -Pain positive and follow-up visit/procedure is scheduled. -Patient's blood pressure measured [ 174/94] , and documented in the record ,and patient will follow up with the primary care. -Patient's weight was measured and body mass index [ 36.9 ] above the normal limits and counseling was done. and patient instructed to follow-up with the primary care physician. -Patient was not identified as an unhealthy alcohol user PQRS Measure Charge Sheet PQRS Narrative: Smoking Status Former smoker Narcotic Agreement Date Signed 12/31/20 Pain Intensity [Abdomen] 3 Scale Used Numeric (1 - 10) Hx Alcohol Use (MH) Yes Home Medications: Ambulatory Orders Bumetanide [BUMEX] 1 mg PO DAILY 07/05/14 Potassium Chloride [Klor-Con 10] 10 meq PO Q48H 07/05/14 amLODIPine BESYLATE/BENAZEPRIL [Amlodipine-Benazepril 5-20 mg] 1 tab PO DAILY 07/05/14 Apixaban [Eliquis] 5 mg PO BID 02/28/15 Aspirin EC [Ecotrin Low Dose] 81 mg PO DAILY 12/22/20 Carvedilol [Coreg] 18.75 mg PO BID 12/22/20 Rosuvastatin Calcium [Crestor] 5 mg PO DAILY 12/22/20 Gabapentin 600 mg PO BID 90 Days #270 tab 06/17/21 HYDROcodone/APAP 5-325MG [[place] 5-325] 1 tab PO Q8HR PRN 30 Days #90 tab 06/17/21 HYDROcodone/APAP 5-325MG [[place] 5] 1 each PO Q6HR PRN 30 Days #90 tab 06/17/21 Controlled Substance Measures - Controlled Substance Measures Is patient prescribed a controlled substance at discharge?: Yes When asked, does pt state using other controlled substances?: No If prescribed controlled substance>3 days was MAPS reviewed?: Yes If Rx opioid, was Start Talking consent form obtained?: Yes If opioid is for acute pain is fill amount 7 days or less?: No Was information provided regarding opioid addiction?: No
[2021-06-17 10:27] VITALS: BP 156/88; PULSE 70; RESP 18; TEMP 97.9
== END | disposition home or self-care (01) ==
LOC: PNWHC3 09:17
PROVIDERS: ATTEND Anesthesiology
DX: G58.0 Intercostal neuropathy (principal)
CPT/HCPCS: 99211

== ENCOUNTER → 2021-08-12 | Outpatient (CLI) | payer MEDICARE, BC ==
[2021-08-12 09:05] VITALS: BP 177/76; PULSE 70; RESP 18; TEMP 97.9
--- NOTE | 2021-08-12 10:02 | P.PAINPG ---
Subjective Progress Note Date: 08/12/21 Principal diagnosis: Left intercostal, and abdominal wall pain, and burning sensation Mr. Reich is a 70-year-old pleasant male came to the [facility] pain clinic for prescription refill. Patient has ongoing pain for many years secondary to thoracic, and abdominal aortic aneurysm repair. Patient describes pain is aching, throbbing, burning , constant type of pain. His most of his pain is on the left chest wall site, and left lateral abdominal wall area where he had incision. Patient rated pain levels are 7-8 out of 10 in severity. With the help of medications pain levels are 5-6 out of 10 in severity. He tried to wean down the medication but his burning pain, and aching pain got worse. Not able to perform his activities of daily living, and poor quality of life. Activities making pain worse. Medications, resting, helping in rel ieving patient's pain. Patient pain some days better than others. Overall activities decreased secondary to pain. Because of the pain sometimes patient is feeling lack of sleep, interest, and energy. Denied any bowel or bladder problems at this time. Patient is fo not using any forr walking support. Patient denies any suicidal or homicidal ideations intent or plan. Patient denies any auditory or visual hallucinations. Patient denied any red flag symptoms related to pain. Objective - Vital Signs Vital signs: Vital Signs Temp 97.9 F 08/12/21 09:01 Pulse 70 08/12/21 09:01 Resp 18 08/12/21 09:01 BP 177/76 08/12/21 09:01 Pulse Ox 97 08/12/21 09:01 - Exam General: Well-developed, well-nourished, no acute distress HEENT: Normocephalic, and atraumatic Neck: Supple, no neck swelling Psychiatric: Appropriate mood, and affect ACCOUNT PLANNER: No noticeable focal neurological deficits Musculoskeletal: Upper extremity: Normal strength, and range of motion. Sensation grossly intact Lower extremity: Normal strength, and decreased range of motion secondary to pain Lumbar spine: Paravertebral tenderness: positive Lumbar facet load test : positive Healed scar in the left lateral chest wall area, and abdominal area. Mild hyperalgesia over the incisional area positive. - Constitutional Constitutional Comment(s): 13 point review of symptoms negative except as mentioned in the history of present illness. 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 Diagnoses, prognosis, and multiple treatment options including but not limited to physical therapy, interventional therapy, adjunct medication therapy, narcotic medication, and surgical options were discussed with the patient. And all questions were answered to the patient's satisfaction. #2 Opioid agreement: Patient was discussed regarding the medication side effects, and complications associated with narcotic use. Also counsels against driving while using narcotic medications, and also against using any alcohol or illicit or recreational drugs in conjunction with opioids. Patient understood the consequences. Patient has signed narcotic agreement and was again asked to re-read this document and will be given a copy to take home if requested. This document outlines the policies of the [facility]. It specifically counsels the patient to not misuse, overuse, abuse, divert, or sell medications, and to take them as prescribed by only one healthcare provider and store the medications in a safe and preferably locked location. This document also counsels against driving while using narcotic medications and also against using any alcohol or illicit or recreational drugs in conjunction with opioids. The patient verbalized understanding to staff that lack of compliance with any of the above will likely result in failure to renew narcotic prescriptions, possible discharge from the clinic, and possible legal ramifications thereafter. #3 Patient was counseled on importance of regular exercise. Including angela chi, aerobic exercises as tolerated. Which helps for chronic pain, and overall well- being. Patient also counseled regarding importance of weight control rolling chronic pain, and overall other health issues. #4 consultation: None #5 investigations: MAPS , urine drug test- reviewed #6 interventional procedures: Patient refused . #7 medications #1 [place] 5/325 by mouth every 2 hours the every 8 hours as needed dispense 90 with no refill #2 Neurontin 600 mg by mouth every 8 hours- patient has enough medication until next clinic visit #3 naloxone 4 mg intranasal for respiratory depression dispense #2- discussed with the patient how to use it if needed by other family members. Medication side effects, complications, long-term consequences discussed with the patient. Patient recommended to contact the pain clinic if noticed any issues with given medications. #8 morphine milligrams equivalents dose ( MME) per day: 15. #9 TENS unit's, and percussion massage device #10 disposition scheduled to follow up with pain clinic in 4 weeks duration. Check the urine drug screen and extended visit. I have spent 20 minutes with this patient. Including but not limited to: [id number] time, on physical examination, electronic medical record review, counseling, and documentation. . Time with Patient: Less than 30 PQRS Measure Charge Sheet Measure #130: Documentation of Current Meds in Medical Chart: Patient's medications documented in chart Measure #226: Tobacco Use: Screen & Cessation Intervention: Pt not a tobacco user Measure #111: Pneumonia Vaccination: Pneumococcal vaccine administered or previously received Measure #47: Advance Care Plan: Advance care planning discussed & documented, plan or surrogate given Measure #412: Opioid Treatment Agreement: Documented signed opioid trtmnt agreemnt min once during opioid trtmnt Measure #408: Opioid Therapy Follow-up Evaluation: Patient had f/u eval minimum every 3 months during opioid therapy Measure #317: Preventitive Care & Scrn High Bld Press & F/U: Pre-hypertensive or hypertensive BP documented, pt will f/u with PCP Measure #128: Body Mass Index (BMI) Screening & Follow-up: BMI documented ABOVE normal parameters - f/u documented Measure #131: Pain Assessment & Follow-up: Pain positive & plan documented Measure #431: Unhealthy Alcohol Use Preventative Care & Scrn: Patient not identified as an unhealthy alcohol user Mode of Arrival: Ambulatory - Pain Location Left Abdomen Non-Pharmacological Interventions: Heat, Inactivity Pharmacological Interventions: Medication, PRN Medication PQRS Narrative: Smoking Status Former smoker Narcotic Agreement Date Signed 12/31/20 Blood Pressure 177/76 Pain Intensity [Left Abdomen] 4 Scale Used Numeric (1 - 10) Hx Alcohol Use (MH) Yes Home Medications: Ambulatory Orders Bumetanide [BUMEX] 1 mg PO DAILY 07/05/14 Potassium Chloride [Klor-Con 10] 10 meq PO Q48H 07/05/14 amLODIPine BESYLATE/BENAZEPRIL [Amlodipine-Benazepril 5-20 mg] 1 tab PO DAILY 07/05/14 Apixaban [Eliquis] 5 mg PO BID 02/28/15 Aspirin EC [Ecotrin Low Dose] 81 mg PO DAILY 12/22/20 Carvedilol [Coreg] 18.75 mg PO BID 12/22/20 Rosuvastatin Calcium [Crestor] 5 mg PO DAILY 12/22/20 HYDROcodone/APAP 5-325MG [[place] 5-325] 1 tab PO Q8HR PRN 30 Days #90 tab 06/17/21 Gabapentin 600 mg PO TID 08/06/21 Controlled Substance Measures - Controlled Substance Measures Is patient prescribed a controlled substance at discharge?: Yes When asked, does pt state using other controlled substances?: Yes If prescribed controlled substance>3 days was MAPS reviewed?: Yes If Rx opioid, was Start Talking consent form obtained?: Yes If opioid is for acute pain is fill amount 7 days or less?: No Was information provided regarding opioid addiction?: Yes
== END | disposition home or self-care (01) ==
LOC: PNWHC3 08:55
DX: G58.8 Other specified mononeuropathies (principal)
CPT/HCPCS: 99211

== ENCOUNTER → 2021-09-09 | Outpatient (CLI) | payer MEDICARE, BC ==
--- NOTE | 2021-09-09 08:23 | P.PN ---
Subjective Progress Note Date: 09/09/21 This is a follow-up visit for this 70 years old male with a chronic history of severe left-sided thoracic and left-sided upper abdominal wall pain, started after he had thoracic and abdominal aneurysm repair. He reports his pain is worse with bending and positions. Pain is made better with his medications, and home exercises and heat. At his best his pain is 2 out of 10. At worst is 8 out of 10. He reported that the pain is constant, severe interfere with the quality of life, he is currently on Neurontin 600 mg 3 times a day, and [place] 5/325 every 8 hours, that the current medication helping him to control his pain, he denies any side effects of the medication, denies any excessive drowsiness or sleepiness, he denies any constipation, he denies any excessive drowsiness and sleepiness. Physical Examinations : -Constitutiona : Cooperative , not in acute distress . -HEENT : nech : supple , no Lymphadenopathy , normal thyroid size . : eyes : no ptosis , no icterus, no photophobia . - neurologic : Cranial nerve II to XII intact , no focal neurological deffecit . -psychatric : alert , oriented X 3 , appropriate affect , intact judgment and insight . -Lymphatic : no Lymphadenopathy . - musculoskeltal : Tenderness over the left side chest wall Allodynia on the left upper quadrant abdominal wall midlines thoracoabdominal incision healed appropriately, no discharge and no erythema, no swelling Lateral thoracoabdominal incision healed appropriately, no discharge, no erythema, no swelling Lumber spine moter stegnth lower extremities ,thigh and legs 5/5 Right side , 5/5 Left side Assessment and plan= Left intercostal neuralgia chronic and current use of high-risk medication (opioids) Patient denies any side effects of the current pain medication and the current treatment/medication helping the patient to do activity of daily living , Diagnoses, prognosis, treatment options, including but not limited to p hysical therapy, medication management, interventional therapies, and surgery, were discussed with the patient All the questions answered The narcotic consent was signed and patient agreed and understood the side effects and complications of opioid treatment. Patient signed the narcotic agreement, and was orally counseled, not to overuse, not to abuse, not to Divert , not tp sell pain medication, and to take it as prescribed only, Patient was counseled not to drive or operate heavy equipment while using narcotic medication, and advised not to use alcohol or any Illicit drugs while using the narcotis. understanding that lack of compliance with any of the above instructions, will likely to cause discharge from, the pain service, not to renew his narcotic prescriptions MAPS Reviwed and it was apropriate . Medication managements= patient will be given prescription refills for [place] 5/325 every 8 hours dispense 90 with 1 refill Neurontin 600 mg every 8 hours dispense 90 Toxicology screen checked today=it was ok . - PQRS measures = - Patient's medications are documented in the chart. -Tobacco use is ,negative and counseling.Given. -Patient's has not received pneumococcal vaccine. -Advanced care planning discussed, patient not eligible. -Opiate contract signed. -Pain positive and follow-up visit/procedure is scheduled. -Patient's blood pressure measured [153/71 ] , and documented in the record ,and patient will follow up with the primary care. -Patient was not identified as an unhealthy alcohol user Assessment and Plan Time with Patient: Less than 30
[2021-09-09 08:28] VITALS: BP 153/71; PULSE 70; RESP 20
== END | disposition home or self-care (01) ==
LOC: PNWHC3 07:49
PROVIDERS: ATTEND Student in an Organized Health Care Education/Training Program
DX: G58.8 Other specified mononeuropathies (principal)
CPT/HCPCS: 80307; G0482; G0463; 99212

== ENCOUNTER → 2021-11-04 | Outpatient (CLI) | payer MEDICARE, BC ==
[2021-11-04 09:12] VITALS: BP 151/85; PULSE 68; RESP 18; TEMP 97.8
--- NOTE | 2021-11-04 17:49 | P.PN ---
Subjective Progress Note Date: 11/04/21 This is a follow-up visit for this 70 years old male with a chronic history of severe left-sided thoracic and left-sided upper abdominal wall pain, started after he had thoracic and abdominal aneurysm repair, he reported that the pain is constant, severe interfere with the quality of life, he is currently on Neurontin 600 mg 3 times a day, and [place] 5/325 every 8 hours, that the current medication helping him to control his pain, he denies any side effects of the medication, denies any excessive drowsiness or sleepiness, he denies any constipation, he denies any excessive drowsiness and sleepiness, patient already done physical therapy and is doing home exercise patient tried activity modification and is doing heat therapy Physical Examinations : -Constitutiona : Cooperative , not in acute distress . -HEENT : nech : supple , no Lymphadenopathy , normal thyroid size . : eyes : no ptosis , no icterus, no photophobia . - neurologic : Cranial nerve II to XII intact , no focal neurological deffecit . -psychatric : alert , oriented X 3 , appropriate affect , intact judgment and insight . -Lymphatic : no Lymphadenopathy . - musculoskeltal : Tenderness over the left side chest wall Allodynia on the left upper quadrant abdominal wall midlines thoracoabdominal incision healed maninder ropriately, no discharge and no erythema, no swelling Lateral thoracoabdominal incision healed appropriately, no discharge, no erythema, no swelling Lumber spine moter stegnth lower extremities ,thigh and legs 5/5 Right side , 5/5 Left side Assessment and plan= Left intercostal neuralgia chronic and current use of high-risk medication (opioids) Patient denies any side effects of the current pain medication and the current treatment/medication helping the patient to do activity of daily living , Diagnoses, prognosis, treatment options, including but not limited to physical therapy, medication management, interventional therapies, and surgery, were discussed with the patient All the questions answered The narcotic consent was signed and patient agreed and understood the side effects and complications of opioid treatment. Patient signed the narcotic agreement, and was orally counseled, not to overuse, not to abuse, not to Divert , not tp sell pain medication, and to take it as prescribed only, Patient was counseled not to drive or operate heavy equipment while using narcotic medication, and advised not to use alcohol or any Illicit drugs while using the narcotis. understanding that lack of compliance with any of the above instructions, will likely to cause discharge from, the pain service, not to renew his narcotic prescriptions MAPS Reviwed and it was apropriate . Medication managements= patient will be given prescription refills for [place] 5/325 every 8 hours dispense 90 with 1 refill Neurontin 600 mg every 8 hours dispense 270 ( 3 months supply ) Toxicology screen checked today=it was ok . - PQRS measures = - Patient's medications are documented in the chart. -Tobacco use is ,negative and counseling.Given. -Patient's has not received pneumococcal vaccine. -Advanced care planning discussed, patient not eligible. -Opiate contract signed. -Pain positive and follow-up visit/procedure is scheduled. -Patient's blood pressure measured [ 151/85] , and documented in the record ,and patient will follow up with the primary care. -Patient's weight was measured and body mass index [ 35.2 ] above the normal limits and counseling was done. and patient instructed to follow-up with the primary care physician. -Patient was not identified as an unhealthy alcohol user Objective - Vital Signs Vital signs: Vital Signs Temp 97.8 F 11/04/21 09:07 Pulse 68 11/04/21 09:07 Resp 18 11/04/21 09:07 BP 151/85 11/04/21 09:07 Pulse Ox 97 11/04/21 09:07
== END | disposition home or self-care (01) ==
LOC: PNWHC3 08:51
PROVIDERS: ATTEND Specialist
DX: G58.0 Intercostal neuropathy (principal)
CPT/HCPCS: 99211

== ENCOUNTER → 2021-12-30 | Outpatient (CLI) | payer MEDICARE, BC ==
[2021-12-30 08:37] VITALS: BP 165/79; PULSE 68; RESP 18; TEMP 98
--- NOTE | 2021-12-30 08:40 | P.PN ---
Subjective Progress Note Date: 12/30/21 Principal diagnosis: A 71 yr old male with a history of severe and chronic mid back pain secondary to neuropathy status post thoracic abdominal aorta aneurysm repair presents today for medication refills. Pain level is 3 out of 10 in intensity, constant, dull, achy along the left flank aspects of the thoracic spine with radiation of sharp, shooting, burning pain towards the anterior left ribs. Pain is provoked by palpation over the incisional scar. Pain is alleviated with medications, heat, physical therapy, home stretching regimen and rest. Patient is currently on H[place] 5/325 mg 3 times a day when necessary Patient denies any side effects of the medication(s), denies excessive drowsiness or sleepiness, denies suicidal ideation and reports that the current pain medication is helping to control the pain and improve activities of daily living. Patient denies any motor or sensory deficits. Patient denies any fever or night sweats, denies any change in the bowel movements or urination. Physical Examination: -Constitutional: Cooperative. Not in acute distress . -HEENT: Neck is supple. No lymphadenopathy. No thyromegaly. Normal thyroid size. Eyes: No ptosis , no icterus, no photophobia. ENT: No auditory deficits. Normal oropharynx. No Thrush. - Respiratory: Chest clear to auscultations bilaterally. No wheezing. No rhonchi. - Cardiovascular: Regular rate and rhythm. S1 / S2 , no S3 , no S4. - Gastrointestinal: Abdomen soft no tenderness. Bowel sounds positive in all four quadrants. No organomegaly. - Genitourinary: Deferred. - Neurologic: Cranial nerve II to XII intact. No focal neurological defici ts. - Psychatric: Alert & oriented x 3. Matching mood & appropriate affect. Judgment and insight intact. - Lymphatic: No Lymphadenopathy. - Musculoskeletal: Cervical spine: Muscle bulk/ tone/ strength in the bilateral upper extremities normal. Facet loading test cervical area positive. Thoracic spine: Well-healed longitudinal incisional scar Tenderness to palpation over the paraspinal muscles of the left T5 through T9 region Lumbar spine: Motor bulk/ tone/ strength lower extremities , thigh and legs : 5/5 Deep tendon reflexes : Normal Knee Jerk. Normal Ankle Jerk . Vertebral body tenderness to palpation over Lumbar Facet Loading Test positive Straight Leg Raise: positive at 30 degrees right side/ left side Gaenslen's Test positive Sacral spine : Severe tenderness over the Sacroiliac joint: right side / left side Range of motion: Flexion of the lumbar spine <60 degrees Range of motion: Extension of the lumbar spine <20 degrees Gaenslen's Test positive Landon test: positive right side / left side Assessment and plan: Chronic mid back pain secondary to neuropathy status post thoracic abdominal aorta aneurysm repair Chronic and current use of high-risk medication (Opioids). The patient was counseled about risk of opioid use, psychological risk associated with opioids and was orally counseled to not overuse , divert or sell medications. Pt is to store medication in a safe location. The patient is counseled against driving while using narcotic medications and also not to use alcohol or any illicit recreational drugs. Patient verbalized understanding that the lack of compliance will result in failure to renew narcotic prescription(s) as well as possible discharge from the clinic Diagnoses, prognosis and treatment options including but not limited to physical therapy, surgical interventions, interventional therapies and medication management including narcotics and adjuvant medication were discussed. All patient questions answered MAPS reviewed and it was appropriate. UDS reviewed and was consistent Prescription refill for H[place] 5/325 #90 with 1 refill I have spent 31 minutes on patient care today. Dr Rouse was available by [employer] for the evaluation of this patient. The time was used to review the medical records including relevant urine studies and Prescription history (MAPs), review of the available imaging, evaluation and examination of the patient, coordination of care with the medical staff and if applicable referring physicians, as well as creation of the medical record PQRS Measure Charge Sheet Mode of Arrival: Ambulatory - Pain Location Left Flank Non-Pharmacological Interventions: Heat, Home Exercise, Physical Therapy, Position/Reposition, Standing Pharmacological Interventions: PRN Medication, Scheduled Medication PQRS Narrative: Smoking Status Former smoker Narcotic Agreement Date Signed 01/28/21 Blood Pressure 165/79 Pain Intensity [Left Flank] 3 Scale Used Numeric (1 - 10) Hx Alcohol Use (MH) Yes: OCCAS Home Medications: Ambulatory Orders Bumetanide [BUMEX] 1 mg PO DAILY 07/05/14 Potassium Chloride [Klor-Con 10] 10 meq PO Q48H 07/05/14 amLODIPine BESYLATE/BENAZEPRIL [Amlodipine-Benazepril 5-20 mg] 1 tab PO DAILY 07/05/14 Apixaban [Eliquis] 5 mg PO BID 02/28/15 Aspirin EC [Ecotrin Low Dose] 81 mg PO DAILY 12/22/20 Carvedilol [Coreg] 18.75 mg PO BID 12/22/20 Rosuvastatin Calcium [Crestor] 5 mg PO DAILY 12/22/20 Gabapentin 600 mg PO TID 90 Days #270 tab 11/04/21 HYDROcodone/APAP 5-325MG [[place] 5-325] 1 tab PO Q8HR PRN 30 Days #90 tab 11/04/21
== END | disposition home or self-care (01) ==
LOC: PNWHC3 08:21
PROVIDERS: ATTEND Physician Assistant Medical
DX: G62.9 Polyneuropathy, unspecified (principal)
CPT/HCPCS: 99211

== ENCOUNTER → 2022-02-24 | Outpatient (CLI) | payer MEDICARE, BC ==
--- NOTE | 2022-02-24 08:54 | P.PN ---
Subjective Progress Note Date: 02/24/22 Principal diagnosis: A 71 yr old male with a history of severe and chronic causalgia & neuralgia s/p R flank surgery in 2013 presents today for medication refills. Pain level is currently at 3 out of 10 in intensity, sharp, stabbing, shooting in the right aspects of the ribs thoracic spine. No provocation and no radiation of pain. Pain is alleviated with medications, topicals which are ineffective, heat, physical therapy years ago, daily biking and walking, use of a recliner for rest. Patient is currently on [place] and Gabapentin 600 mg 3 times a day Patient denies any side effects of the medication(s), denies excessive drowsiness or sleepiness, denies suicidal ideation and reports that the current pain medication is helping to control the pain and improve activities of daily living. Patient denies any motor or sensory deficits. Patient denies any fever or night sweats, denies any change in the bowel movements or urination. Physical Examination: -Constitutional: Cooperative. Not in acute distress . -HEENT: Neck is supple. No lymphadenopathy. No thyromegaly. Normal thyroid size. Eyes: No ptosis , no icterus, no photophobia. ENT: No auditory deficits. Normal oropharynx. No Thrush. - Respiratory: Chest clear to auscultations bilaterally. No wheezing. No rhonchi. - Cardiovascular: Regular rate and rhythm. S1 / S2 , no S3 , no S4. - Gastrointestinal: Abdomen soft no tenderness. Bowel sounds positive in all four quadrants. No organomegaly. - Genitourinary: Deferred. - Neurologic: Cranial nerve II to XII intact. No focal neurological deficits. - Psychatric: Alert & oriented x 3. Matching mood & appropriate affect. Judgment and insight intact. - Lymphatic: No Lymphadenopathy. - Musculoskeletal: Cervical spine: Muscle bulk/ tone/ strength in the bilateral upper extremities normal. Facet loading test cervical area positive. Thoracic spine: R Paraspinal Tenderness to palpation Lumbar spine: Motor bulk/ tone/ strength lower extremities , thigh and legs : 5/5 Deep tendon reflexes : Normal Knee Jerk. Normal Ankle Jerk . Vertebral body tenderness to palpation over Lumbar Facet Loading Test positive Straight Leg Raise: positive at 30 degrees right side/ left side Gaenslen's Test positive Sacral spine : Severe tenderness over the Sacroiliac joint: right side / left side Range of motion: Flexion of the lumbar spine <60 degrees Range of motion: Extension of the lumbar spine <20 degrees Gaenslen's Test positive Landon test: positive right side / left side Assessment and plan: Chronic causalgia/ neuralgia s/p R flank surgery in 2012 Chronic and current use of high-risk medication (Opioids). The patient was counseled about risk of opioid use, psychological risk associated with opioids and was orally counseled to not overuse , divert or sell medications. Pt is to store medication in a safe location. The patient is counseled against driving while using narcotic medications and also not to use alcohol or any illicit recreational drugs. Patient verbalized understanding that the lack of compliance will result in failure to renew narcotic prescription(s) as well as possible discharge from the clinic Diagnoses, prognosis and treatment options including but not limited to physical therapy, surgical interventions, interventional therapies and medication management including narcotics and adjuvant medication were discussed. All patient questions answered MAPS reviewed and it was appropriate. Urine collected for UDS today 02/24/22 Opiate agreement signed today 02/24/22 Prescription refill for Spencer w 1 refill, Gabapentin 600mg #270 no refill. I have spent 31 minutes on patient care today. Dr Rouse was available by phone for the evaluation of this patient. The time was used to review the medical records including relevant urine studies and Prescription history (MAPs), review of the available imaging, evaluation and examination of the patient, coordination of care with the medical staff and if applicable referring physicians, as well as creation of the medical record PQRS Measure Charge Sheet PQRS Narrative: Smoking Status Former smoker Narcotic Agreement Date Signed 01/28/21 Hx Alcohol Use (MH) Yes: OCCAS Home Medications: Ambulatory Orders Bumetanide [BUMEX] 1 mg PO DAILY 07/05/14 Potassium Chloride [Klor-Con 10] 10 meq PO Q48H 07/05/14 amLODIPine BESYLATE/BENAZEPRIL [Amlodipine-Benazepril 5-20 mg] 1 tab PO DAILY 07/05/14 Apixaban [Eliquis] 5 mg PO BID 02/28/15 Aspirin EC [Ecotrin Low Dose] 81 mg PO DAILY 12/22/20 Carvedilol [Coreg] 18.75 mg PO BID 12/22/20 Rosuvastatin Calcium [Crestor] 5 mg PO DAILY 12/22/20 Gabapentin 600 mg PO TID 90 Days #270 tab 02/24/22 HYDROcodone/APAP 5-325MG [[place] 5-325] 1 tab PO Q8HR PRN 30 Days #90 tab HYDROcodone/APAP 5-325MG [[place] 5-325] 1 tab PO Q8HR PRN 30 Days #90 tab 02/24/22
[2022-02-24 10:23] VITALS: BP 174/81; PULSE 72; RESP 18; TEMP 97.6
== END | disposition home or self-care (01) ==
LOC: PNWHC3 08:19
PROVIDERS: ATTEND Specialist
DX: Z76.0 Encounter for issue of repeat prescription (principal); G58.0 Intercostal neuropathy
CPT/HCPCS: 80307; G0482; G0463; 99212

== ENCOUNTER → 2022-04-21 | Outpatient (CLI) | payer MEDICARE, BC ==
[2022-04-21 08:40] VITALS: BP 165/93; PULSE 70; RESP 18; TEMP 97.4
--- NOTE | 2022-04-21 09:01 | P.PAINPG ---
PQRS Measure Charge Sheet Comment: A 71 yr old male with a history of severe and chronic low back pain secondary to lumbar degenerative disc diseases and lumbar spondylosis with facet arthropathy presents today for medication refills. Pain level is currently at 3 out of 10 intensity, constant, achy in the left aspect of the lumbar spine wi th radiation of numbing pain to the left abdomen. Denies radiation of pain to the lower extremities. Pain is provoked by walking. Pain is alleviated with medications, heat, home-based stretching regimen and sitting. Patient states that topicals are ineffective in managing pain and has not tried physical therapy or chiropractic treatments. Patient is currently on [place] 5/325 #90, Neurontin. Patient denies any side effects of the medication(s), denies excessive drowsiness or sleepiness, denies suicidal ideation and reports that the current pain medication is helping to control the pain and improve activities of daily living. Patient denies any motor or sensory deficits. Patient denies any fever or night sweats, denies any change in the bowel movements or urination. Physical Examination: -Constitutional: Cooperative. Not in acute distress . -HEENT: Neck is supple. No lymphadenopathy. No thyromegaly. Normal thyroid size. Eyes: No ptosis , no icterus, no photophobia. ENT: No auditory deficits. Normal oropharynx. No Thrush. - Respiratory: Chest clear to auscultations bilaterally. No wheezing. No rhonchi. - Cardiovascular: Regular rate and rhythm. S1 / S2 , no S3 , no S4. - Gastrointestinal: Abdomen soft no tenderness. Bowel sounds positive in all four quadrants. No organomegaly. - Genitourinary: Deferred. - Neurologic: Cranial nerve II to XII intact. No focal neurological deficits. - Psychatric: Alert & oriented x 3. Matching mood & appropriate affect. Judgment and insight intact. - Lymphatic: No Lymphadenopathy. - Musculoskeletal: Cervical spine: Muscle bulk/ tone/ strength in the bilateral upper extremities normal Vertebral body tenderness to palpation over Facet loading test positive Thoracic spine Muscle bulk / tone/ strength in the bilateral paraspinal muscles normal Vertebral body tender to palpation over Facet loading test positive Lumbar spine: Motor bulk/ tone/ strength lower extremities , thigh and legs : 5/5 Deep tendon reflexes : Normal Knee Jerk. Normal Ankle Jerk . Vertebral body tenderness to palpation over L3, L4, L5 Lumbar Facet Loading Test positive BL Straight Leg Raise: positive at 30 degrees right side/ left side Gaenslen's Test positive Sacral spine : Severe tenderness over the Sacroiliac joint: right side / left side Range of motion: Flexion of the lumbar spine <60 degrees Range of motion: Extension of the lumbar spine <20 degrees Gaenslen's Test positive Umair's Test positive Landon test: positive right side / left side Thigh Thrust Test Sacral Thrust Test Assessment and plan: Chronic low back pain secondary to lumbar degenerative disc disease , lumbar spondylosis with facet arthropathy without myelopathy Chronic and current use of high-risk medication (Opioids). The patient was counseled about risk of opioid use, psychological risk associated with opioids and was orally counseled to not overuse , divert or sell medications. Pt is to store medication in a safe location. The patient is counseled against driving while using narcotic medications and also not to use alcohol or any illicit recreational drugs. Patient verbalized understanding that the lack of compliance will result in failure to renew narcotic prescription(s) as well as possible discharge from the clinic Diagnoses, prognosis and treatment options including but not limited to physical therapy, surgical interventions, interventional therapies and medication management including narcotics and adjuvant medication were discuss ed. All patient questions answered MAPS reviewed and it was appropriate. UDS from 02/24/22 reviewed and consistent Prescription refill for [place] 5/325mg # 90with 1 refill, Neurontin 90 days with 0 refill I have spent 31 minutes on patient care today. Dr Rouse was available by phone for the evaluation of this patient. The time was used to review the medical records including relevant urine studies and Prescription history (MAPs), review of the available imaging, evaluation and examination of the patient, coordination of care with the medical staff and if applicable referring physicians, as well as creation of the medical record - Pain Location Left Abdomen Non-Pharmacological Interventions: Heat Pharmacological Interventions: PRN Medication, Scheduled Medication PQRS Narrative: Smoking Status Former smoker Narcotic Agreement Date Signed 01/28/21 Pain Intensity [Left Abdomen] 5 Hx Alcohol Use (MH) Yes: OCCAS Home Medications: Ambulatory Orders Bumetanide [BUMEX] 1 mg PO DAILY 07/05/14 Potassium Chloride [Klor-Con 10] 10 meq PO Q48H 07/05/14 amLODIPine BESYLATE/BENAZEPRIL [Amlodipine-Benazepril 5-20 mg] 1 tab PO DAILY 07/05/14 Apixaban [Eliquis] 5 mg PO BID 02/28/15 Aspirin EC [Ecotrin Low Dose] 81 mg PO DAILY 12/22/20 Carvedilol [Coreg] 18.75 mg PO BID 12/22/20 Rosuvastatin Calcium [Crestor] 5 mg PO DAILY 12/22/20 Gabapentin 600 mg PO TID 90 Days #270 tab 04/21/22 HYDROcodone/APAP 5-325MG [[place] 5-325] 1 tab PO Q8HR PRN 30 Days #90 tab 04/21/22 HYDROcodone/APAP 5-325MG [[place] 5-325] 1 tab PO Q8HR PRN 30 Days #90 tab 04/21/22 Controlled Substance Measures - Controlled Substance Measures Is patient prescribed a controlled substance at discharge?: Yes When asked, does pt state using other controlled substances?: Yes If prescribed controlled substance>3 days was MAPS reviewed?: Yes If Rx opioid, was Start Talking consent form obtained?: Yes If opioid is for acute pain is fill amount 7 days or less?: Yes Was information provided regarding opioid addiction?: Yes
== END | disposition home or self-care (01) ==
LOC: PNWHC3 08:17
PROVIDERS: ATTEND Specialist
DX: M47.896 Other spondylosis, lumbar region (principal)
CPT/HCPCS: 99211

== ENCOUNTER → 2022-06-16 | Outpatient (CLI) | payer MEDICARE, BC ==
[2022-06-16 08:35] VITALS: BP 147/83; PULSE 69; RESP 18; TEMP 98.6
--- NOTE | 2022-06-16 09:09 | P.PAINPG ---
PQRS Measure Charge Sheet Comment: A 71 yr old male with a history of severe and chronic low back pain secondary to lumbar degenerative disc diseases and lumbar spondylosis with facet arthropathy presents today for medication refills. Pain level is currently at 3/10 in intensity, but escalates as high as 8/10 w lifting and twisting. Pain is constant, tight numb in character without radiation. Pain is alleviated with medications, heat, PT in 2019, repositioning and rest. Patient is currently on Neurontin, [place] Patient denies any side effects of the medication(s), denies excessive drowsiness or sleepiness, denies suicidal ideation and reports that the current pain medication is helping to control the pain and improve activities of daily living. Patient denies any motor or sensory deficits. Patient denies any fever or night sweats, denies any change in the bowel movements or urination. Physical Examination: -Constitutional: Cooperative. Not in acute distress . - Neurologic: Cranial nerve II to XII intact. No focal neurological deficits. - Psychatric: Alert & oriented x 3. Matching mood & appropriate affect. Judgment and insight intact. - Musculoskeletal: Cervical spine: Muscle bulk/ tone/ strength in the bilateral upper extremities normal Vertebral body tenderness to palpation over Spurling test positive Distraction test positive Facet loading test positive Thoracic spine Muscle bulk / tone/ strength in the bilateral paraspinal muscles normal Vertebral body tender to palpation over Facet loading test positive Lumbar spine: Motor bulk/ tone/ strength lower extremities , thigh and legs : 5/5 Deep tendon reflexes : Normal Knee Jerk. Normal Ankle Jerk . Vertebral body tenderness to palpation over L4, L5 Lumbar Facet Loading Test positive Straight Leg Raise: positive at 30 degrees right side/ left side Gaenslen's Test positive Sacral spine : Severe tenderness over the Sacroiliac joint: right side / left side Range of motion: Flexion of the lumbar spine <60 degrees Range of motion: Extension of the lumbar spine <20 degrees Gaenslen's Test positive Umair's Test positive Landon test: positive right side / left side Thigh Thrust Test Sacral Thrust Test Assessment and plan: Chronic low back pain secondary to lumbar degenerative disc disease , lumbar spondylosis with facet arthropathy without myelopathy Chronic and current use of high-risk medication (Opioids). The patient was counseled about risk of opioid use, psychological risk associated with opioids and was orally counseled to not overuse , divert or sell medications. Pt is to store medication in a safe location. The patient is counseled against driving while using narcotic medi cations and also not to use alcohol or any illicit recreational drugs. Patient verbalized understanding that the lack of compliance will result in failure to renew narcotic prescription(s) as well as possible discharge from the clinic Diagnoses, prognosis and treatment options including but not limited to physical therapy, surgical interventions, interventional therapies and medicat ion management including narcotics and adjuvant medication were discussed. All patient questions answered MAPS reviewed and it was appropriate. Prescription refill for [place] 5/325mg #90 w 2 refill, Neurontin 600mg TID #270 NF I have spent less than 30 minutes on patient care today. Dr Rouse was available by phone for the evaluation of this patient. The time was used to re view the medical records including relevant urine studies and Prescription history (MAPs), review of the available imaging, evaluation and examination of the patient, coordination of care with the medical staff and if applicable referring physicians, as well as creation of the medical record - Pain Location Right Upper Flank Non-Pharmacological Interventions: Heat, Home Exercise, Physical Therapy, Stretching Pharmacological Interventions: PRN Medication, Scheduled Medication PQRS Narrative: Smoking Status Former smoker Narcotic Agreement Date Signed 02/24/22 Hx Alcohol Use (MH) Yes: OCCAS Home Medications: Ambulatory Orders Bumetanide [BUMEX] 1 mg PO DAILY 07/05/14 Potassium Chloride [Klor-Con 10] 10 meq PO Q48H 07/05/14 amLODIPine BESYLATE/BENAZEPRIL [Amlodipine-Benazepril 5-20 mg] 1 tab PO DAILY 07/05/14 Apixaban [Eliquis] 5 mg PO BID 02/28/15 Aspirin EC [Ecotrin Low Dose] 81 mg PO DAILY 12/22/20 Rosuvastatin Calcium [Crestor] 5 mg PO DAILY 12/22/20 carvediloL [Coreg] 18.75 mg PO BID 12/22/20 Gabapentin 600 mg PO TID 90 Days #270 tab 06/16/22 HYDROcodone/APAP 5-325MG [[place] 5-325] 1 tab PO Q8HR PRN 30 Days #90 tab 06/16/22 HYDROcodone/APAP 5-325MG [[place] 5-325] 1 tab PO Q8HR PRN 30 Days #90 tab 06/16/22 HYDROcodone/APAP 5-325MG [[place] 5-325] 1 tab PO Q8HR PRN 30 Days #90 tab 06/16/22 Controlled Substance Measures - Controlled Substance Measures Is patient prescribed a controlled substance at discharge?: Yes When asked, does pt state using other controlled substances?: Yes If prescribed controlled substance>3 days was MAPS reviewed?: Yes If Rx opioid, was Start Talking consent form obtained?: Yes Was information provided regarding opioid addiction?: Yes
== END ==
LOC: PNWHC3 08:17
PROVIDERS: ATTEND Specialist
DX: M51.36 Other intervertebral disc degeneration, lumbar region (principal); M47.816 Spondylosis without myelopathy or radiculopathy, lumbar region; G89.29 Other chronic pain; Z79.891 Long term (current) use of opiate analgesic; Z87.891 Personal history of nicotine dependence; Z91.041 Radiographic dye allergy status
CPT/HCPCS: 99211

== ENCOUNTER → 2022-09-08 | Outpatient (CLI) | payer MEDICARE, BC ==
[2022-09-08 08:59] VITALS: BP 158/78; PULSE 65; RESP 18; TEMP 97.4
--- NOTE | 2022-09-08 14:41 | P.PAINPG ---
PQRS Measure Charge Sheet Comment: A 72 yr old male with a history of severe and chronic low back pain secondary to lumbar degenerative disc diseases and lumbar spondylosis with facet arthropathy without myelopathy presents today for medication refills. Pain level is currently at 4/10 in intensity, constant, localized in the L thoracic/lumbar spine, sore in character w shooting towards the L flanks. Pain is provoked by any activity. Pain is alleviated with medications, heat, laying supine, inactivity and rest. Interventional pain procedures completed include Denies Patient is currently on [place] , Neurontin Patient denies any side effects of the medication(s), denies excessive drowsiness or sleepiness, denies suicidal ideation and reports that the current pain medication is helping to control the pain and improve activities of daily living. Patient denies any motor or sensory deficits. Patient denies any fever or night sweats, denies any change in the bowel movements or urination. Physical Examination: -Constitutional: Cooperative. Not in acute distress . - Neurologic: Cranial nerve II to XII intact. No focal neurological d eficits. - Psychatric: Alert & oriented x 3. Matching mood & appropriate affect. Judgment and insight intact. - Musculoskeletal: Cervical spine: Muscle bulk/ tone/ strength in the bilateral upper extremities normal Vertebral body tenderness to palpation over Spurling test positive Distraction test positive Facet loading test positive Thoracic spine Muscle bulk / tone/ strength in the bilateral paraspinal muscles normal Vertebral body tender to palpation over Facet loading test positive w L lateral flexion Lumbar spine: Motor bulk/ tone/ strength lower extremities , thigh and legs : 5/5 Deep tendon reflexes : Normal Knee Jerk. Normal Ankle Jerk . Vertebral body tenderness to palpation over Lumbar Facet Loading Test positive w L lateral flexion Straight Leg Raise: positive at 30 degrees right side/ left side Gaenslen's Test positive Sacral spine : Severe tenderness over the Sacroiliac joint: right side / left side Range of motion: Flexion of the lumbar spine <60 degrees Range of motion: Extension of the lumbar spine <20 degrees Gaenslen's Test positive Umair's Test positive Landon test: positive right side / left side Thigh Thrust Test Sacral Thrust Test Assessment and plan: Chronic low back pain secondary to lumbar degenerative disc disease , lumbar spondylosis with facet arthropathy without myelopathy Chronic and current use of high-risk medication (Opioids). The patient was counseled about risk of opioid use, psychological risk associated with opioids and was orally counseled to not overuse , divert or sell medications. Pt is to store medication in a safe location. The patient is counseled against driving while using narcotic medications and also not to use alcohol or any illicit recreational drugs. Patient verbalized understanding that the lack of compliance will result in failure to renew narcotic prescription(s) as well as possible discharge from the clinic Diagnoses, prognosis and treatment options including but not limited to physical therapy, surgical interventions, interventional therapies and medication management including narcotics and adjuvant medication were discus sed. All patient questions answered MAPS reviewed and it was appropriate. UDS collected today 09/08/22 Admits to having Naloxone on hand prescribed from prior visit. Prescription refill for [place] 5/325mg #90 w 1 RF I have spent less than 30 minutes on patient care today. Dr Rouse was available by phone for the evaluation of this patient. The time was used to review the medical records including relevant urine studies and Prescription history (MAPs), review of the available imaging, evaluation and examination of the patient, coordination of care with the medical staff and if applicable referring physicians, as well as creation of the medical record - Pain Location Left Flank Non-Pharmacological Interventions: Heat, Inactivity Pharmacological Interventions: PRN Medication, Scheduled Medication PQRS Narrative: Smoking Status Former smoker Narcotic Agreement Date Signed 02/24/22 Hx Alcohol Use (MH) Yes: OCCAS Home Medications: Ambulatory Orders Bumetanide [BUMEX] 1 mg PO DAILY 07/05/14 Potassium Chloride [Klor-Con 10] 10 meq PO Q48H 07/05/14 amLODIPine BESYLATE/BENAZEPRIL [Amlodipine-Benazepril 5-20 mg] 1 tab PO DAILY 07/05/14 Apixaban [Eliquis] 5 mg PO BID 02/28/15 Aspirin EC [Ecotrin Low Dose] 81 mg PO DAILY 12/22/20 Rosuvastatin Calcium [Crestor] 5 mg PO DAILY 12/22/20 carvediloL [Coreg] 18.75 mg PO BID 12/22/20 Gabapentin 600 mg PO TID 90 Days #270 tab 06/16/22 HYDROcodone/APAP 5-325MG [[place] 5-325] 1 tab PO Q8HR PRN 30 Days #90 tab 06/18/22 HYDROcodone/APAP 5-325MG [[place] 5-325] 1 tab PO Q8HR PRN 30 Days #90 tab 09/08/22 HYDROcodone/APAP 5-325MG [[place] 5-325] 1 tab PO Q8HR PRN 30 Days #90 tab 09/08/22 Controlled Substance Measures - Controlled Substance Measures Is patient prescribed a controlled substance at discharge?: Yes When asked, does pt state using other controlled substances?: No If prescribed controlled substance>3 days was MAPS reviewed?: Yes If Rx opioid, was Start Talking consent form obtained?: Yes Was information provided regarding opioid addiction?: Yes
== END ==
LOC: PNWHC3 08:21
PROVIDERS: ATTEND Specialist
DX: M47.816 Spondylosis without myelopathy or radiculopathy, lumbar region (principal); G89.29 Other chronic pain; M51.36 Other intervertebral disc degeneration, lumbar region; Z79.82 Long term (current) use of aspirin; Z91.041 Radiographic dye allergy status; Z87.891 Personal history of nicotine dependence
CPT/HCPCS: 80307; G0482; G0463; 99212

== ENCOUNTER → 2022-10-27 | Outpatient (CLI) | payer MEDICARE, BC ==
[2022-10-27 09:33] VITALS: BP 156/81; RESP 18; TEMP 98
--- NOTE | 2022-10-27 14:59 | P.PAINPG ---
PQRS Measure Charge Sheet Comment: A 72 yr old male with a history of severe and chronic low back pain secondary to causalgia, neuralgia presents today for medication refills. Pain level is at 8 /10 in intensity, constant, localized in the mid to lower lumbar spine, dull/ achy in character w shooting towards the BLEs. Pain is provoked by bending, lifting, twisting or over activity. Pain is alleviated with medications (Saint Johns, Neurontin), injections, heat, repositioning and rest. Patient is currently on [place] 5/325mg #90, Neurontin 600mg #270 Patient denies any side effects of the medication(s), denies excessive drowsiness or sleepiness, denies suicidal ideation and reports that the current pain medication is helping to control the pain and improve activities of daily living. Patient denies any motor or sensory deficits. Patient denies any fever or night sweats, denies any change in the bowel movements or urination. Physical Examination: -Constitutional: Cooperative. Not in acute distress . - Neurologic: Cranial nerve II to XII intact. No focal neurological deficits. - Psychatric: Alert & oriented x 3. Matching mood & appropriate affect. Judgment and insight intact. - Musculoskeletal: Cervical spine: Muscle bulk/ tone/ strength in the bilateral upper extremities normal Vertebral body tenderness to palpation over Spurling test positive Distraction test positive Facet loading test positive Thoracic spine Muscle bulk / tone/ strength in the bilateral paraspinal muscles normal Vertebral body tender to palpation over Facet loading test positive Lumbar spine: Motor bulk/ tone/ strength lower extremities , thigh and legs : 5/5 Deep tendon reflexes : Normal Knee Jerk. Normal Ankle Jerk . Vertebral body tenderness to palpation over L3, L4, L5 Lumbar Facet Loading Test positive Straight Leg Raise: positive at 30 degrees right side/ left side Gaenslen's Test positive Sacral spine : Severe tenderness over the Sacroiliac joint: right side / left side Range of motion: Flexion of the lumbar spine <60 degrees Range of motion: Extension of the lumbar spine <20 degrees Gaenslen's Test positive Landon test: positive right side / left side Thigh Thrust Test Sacral Thrust Test Assessment and plan: Chronic low back pain secondary to lumbar degenerative disc disease, spondylosis with facet arthropathy without myelopathy Chronic and current use of high-risk medication (Opioids). The patient was counseled about risk of opioid use, psychological risk associated with opioids and was orally counseled to not overuse , divert or sell medications. Pt is to store medication in a safe location. The patient is counseled against driving while using narcotic medication s and also not to use alcohol or any illicit recreational drugs. Patient verbalized understanding that the lack of compliance will result in failure to renew narcotic prescription(s) as well as possible discharge from the clinic Diagnoses, prognosis and treatment options including but not limited to physical therapy, surgical interventions, interventional therapies and medication management including narcotics and adjuvant medication were discussed. All patient questions answered MAPS reviewed and it was appropriate. Prescription refill for Norc 5/325mg #90 w 1 RF, Neurontin 600mg #270 I have spent less than 30 minutes on patient care today. Dr Rouse was available by phone for the evaluation of this patient. The time was used to review the medical records including relevant urine studies and Prescription history (MAPs), review of the available imaging, evaluation and examination of the patient, coordination of care with the medical staff and if applicable referring physicians, as well as creation of the medical record PQRS Narrative: Smoking Status Former smoker Narcotic Agreement Date Signed 02/24/22 Hx Alcohol Use (MH) Yes: OCCAS Home Medications: Ambulatory Orders Bumetanide [BUMEX] 1 mg PO DAILY 07/05/14 Potassium Chloride [Klor-Con 10] 10 meq PO Q48H 07/05/14 amLODIPine BESYLATE/BENAZEPRIL [Amlodipine-Benazepril 5-20 mg] 1 tab PO DAILY 07/05/14 Apixaban [Eliquis] 5 mg PO BID 02/28/15 Aspirin EC [Ecotrin Low Dose] 81 mg PO DAILY 12/22/20 Rosuvastatin Calcium [Crestor] 5 mg PO DAILY 12/22/20 carvediloL [Coreg] 18.75 mg PO BID 12/22/20 Gabapentin 600 mg PO TID 90 Days #270 tab 06/16/22 HYDROcodone/APAP 5-325MG [[place] 5-325] 1 tab PO Q8HR PRN 30 Days #90 tab 06/18/22 HYDROcodone/APAP 5-325MG [[place] 5-325] 1 tab PO Q8HR PRN 30 Days #90 tab 09/08/22 HYDROcodone/APAP 5-325MG [[place] 5-325] 1 tab PO Q8HR PRN 30 Days #90 tab 09/08/22 Controlled Substance Measures - Controlled Substance Measures Is patient prescribed a controlled substance at discharge?: Yes When asked, does pt state using other controlled substances?: No If prescribed controlled substance>3 days was MAPS reviewed?: Yes If Rx opioid, was Start Talking consent form obtained?: Yes Was information provided regarding opioid addiction?: Yes
== END ==
LOC: PNWHC3 07:59
PROVIDERS: ATTEND Specialist
DX: M47.816 Spondylosis without myelopathy or radiculopathy, lumbar region (principal); M51.36 Other intervertebral disc degeneration, lumbar region; Z79.891 Long term (current) use of opiate analgesic; Z91.041 Radiographic dye allergy status; Z87.891 Personal history of nicotine dependence
CPT/HCPCS: 99211

== ENCOUNTER 2023-08-10 12:02 | Emergency (ER) | payer MEDICARE, BC ==
[2023-08-10 12:37] VITALS: TEMP 97.6
[2023-08-10] MEDS ORDERED: HYDROmorphone 0.5 MG/0.5 ML SYRINGE IVP STA (13:42)
[2023-08-10] MEDS ORDERED: KETOROLAC 15 MG/ML 1 ML VIAL IVP STA (13:42)
[2023-08-10] MEDS ORDERED: GABAPENTIN 400 MG CAP PO STA (13:43)
--- NOTE | 2023-08-10 13:51 | ED ---
General Adult HPI - General Chief complaint: Abdominal Pain Stated complaint: Abd Pain Time Seen by Provider: 08/10/23 13:30 Source: patient, RN notes reviewed, old records reviewed Mode of arrival: wheelchair - History of Present Illness Initial comments: This is a 72-year-old male who presents emergency Department stating he has nerve pain on the left flank over the scar that he has secondary to an aortic surgery. Patient states the pain is always there but yesterday he went out along and helped his from some trees and he is aggravated significantly where his home meds are not taking care of the pain. Patient denies any new symptoms or any difference in his symptoms other than it is more painful today than normal. Patient states it seems to be exacerbated by some movement but it typically just hurts on its own. Patient denies any fever chills per patient denies any abdominal pain. Patient denies any chest pain difficulty breathing or shortness of breath. - Related Data Home Medications Medication Instructions Recorded Confirmed Bumetanide [BUMEX] 1 mg PO DAILY 07/05/14 06/16/22 Potassium Chloride [Klor-Con 10] 10 meq PO Q48H 07/05/14 06/16/22 amLODIPine BESYLATE/BENAZEPRIL 1 tab PO DAILY 07/05/14 06/16/22 [Amlodipine-Benazepril 5-20 mg] Apixaban [Eliquis] 5 mg PO BID 02/28/15 06/16/22 Aspirin EC [Ecotrin Low Dose] 81 mg PO DAILY 12/22/20 06/16/22 Rosuvastatin Calcium [Crestor] 5 mg PO DAILY 12/22/20 06/16/22 carvediloL [Coreg] 18.75 mg PO BID 12/22/20 06/16/22 Previous Rx's Medication Instructions Recorded Gabapentin 600 mg PO TID 90 Days #270 tab 10/27/22 HYDROcodone/APAP 5-325MG [[place] 1 tab PO Q8HR PRN 30 Days #90 tab 10/27/22 5-325] HYDROcodone/APAP 5-325MG [[place] 1 tab PO Q8HR PRN 30 Days #90 tab 10/27/22 5-325] HYDROcodone/APAP 5-325MG [[place] 1 tab PO Q8HR PRN 30 Days #90 tab 10/27/22 5-325] Allergies Allergy/AdvReac Type Severity Reaction Status Date / Time Iodinated Contrast Media Allergy Rash/Hives Verified 08/10/23 12:34 iodine Allergy Rash/Hives Verified 08/10/23 12:34 Review of Systems ROS Statement: Those systems with pertinent positive or pertinent negative responses have been documented in the HPI. ROS Other: All systems not noted in ROS Statement are negative. Past Medical History Past Medical History: Atrial Fibrillation, Hyperlipidemia, Hypertension, Osteoarthritis (OA) Additional Past Medical History / Comment(s): recieved three COVID vaccines, Hx aortic aneursym, fractured left ribs & clavicle. Pre Diabetes. History of Any Multi-Drug Resistant Organisms: None Reported Past Surgical History: Cholecystectomy, Joint Replacement, Tonsillectomy Additional Past Surgical History / Comment(s): Total left knee replacement, AAA repair, "aorta repair". Past Anesthesia/Blood Transfusion Reactions: No Reported Reaction Past Psychological History: No Psychological Hx Reported Smoking Status: Former smoker Past Alcohol Use History: Occasional Past Drug Use History: None Reported - Past Family History Father Family Medical History: COPD Additional Family Medical History / Comment(s): Father of emphysema. He was a smoker. Mother Family Medical History: Congestive Heart Failure (CHF) Additional Family Medical History / Comment(s): Mother of CHF. General Exam - General Exam Comments Initial Comments: GENERAL: Patient is well-developed and well-nourished. Patient is nontoxic and well- hydrated and is in moderate distress. ENT: Neck is soft and supple. No significant lymphadenopathy is noted. Oropharynx is clear. Moist mucous membranes. Neck has full range of motion without eliciting any pain. EYES: The sclera were anicteric and conjunctiva were pink and moist. Extraocular movements were intact and pupils were equal round and reactive to light. Eyelids were unremarkable. PULMONARY: Unlabored respirations. Good breath sounds bilaterally. No audible rales rhonchi or wheezing was noted. CARDIOVASCULAR: There is a regular rate and rhythm without any murmurs gallops or rubs. ABDOMEN: Soft and nontender with normal bowel sounds. Patient has a long scar on the left flank only minimally tender to palpation SKIN: Skin is clear with no lesions or rashes and otherwise unremarkable. NEUROLOGIC: Patient is alert and oriented x3. Cranial nerves II through XII are grossly intact. Motor and sensory are also intact. Normal speech, volume and content. Symmetrical smile. MUSCULOSKELETAL: Normal extremities with adequate strength and full range of motion. LYMPHATICS: No significant lymphadenopathy is noted PSYCHIATRIC: Normal psychiatric evaluation. Course Vital Signs 08/10/23 08/10/23 12:29 14:06 Temperature 97.6 F Pulse Rate 107 H 84 Respiratory 20 18 Rate Blood Pressure 165/75 146/66 O2 Sat by Pulse 96 96 Oximetry Medical Decision Making - Medical Decision Making Was pt. sent in by a medical professional or institution (, [facility], AERIAL PHOTOGRAMMETRIST, urgent care, hospital, or halfway...) When possible be specific @ -No Did you speak to anyone other than the patient for history (EMS, parent, family, police, friend...)? What history was obtained from this source @ -No Did you review nursing and triage notes (agree or disagree)? Why? @ -I reviewed and agree with nursing and triage notes Were old charts reviewed (outside hosp., previous admission, EMS record, old EKG, old radiological studies, urgent care reports/EKG's, halfway records)? Report findings @ -No old charts were reviewed Differential Diagnosis (chest pain, altered mental status, abdominal pain women, abdominal pain men, vaginal bleeding, weakness, fever, dyspnea, syncope, headache, dizziness, GI bleed, back pain, seizure, CVA, palpatations, mental health, musculoskeletal)? @ -Differential Abdominal Pain Men: Appendicitis, cholecystitis, diverticulosis, ischemic bowel, pancreatitis, hepa titis, UTI, gastroenteritis, AAA, incarcerated hernia, bowel obstruction, constipation, inflammatory bowel, hepatitis, peptic ulcer disease, splenic infarction, perforated viscus, testicular torsion, patient has a history of chronic nerve pain, this is not meant to be an all-inclusive list EKG interpreted by me (3pts min.). @ -As above X-rays interpreted by me (1pt min.). @ -None done CT interpreted by me (1pt min.). @ -None done U/S interpreted by me (1pt. min.). @ -None done What testing was considered but not performed or refused? (CT, X-rays, U/S, labs)? Why? @ -None What meds were considered but not given or refused? Why? @ -None Did you discuss the management of the patient with other professionals (professionals i.e. , PA, AERIAL PHOTOGRAMMETRIST, lab, RT, psych nurse, social media manager, varnish maker helper, teacher, trust officer, case management coordinator)? Give summary @ -No Was smoking cessation discussed for >3mins.? @ -No Was critical care preformed (if so, how long)? @ -No Were there social determinants of health that impacted care today? How? (Homelessness, low income, unemployed, alcoholism, drug addiction, transportation, low edu. Level, literacy, decrease access to med. care, [facility], rehab)? @ -No Was there de-escalation of care discussed even if they declined (Discuss DNR or withdrawal of care, Hospice)? DNR status @ -No What co-morbidities impacted this encounter? (DM, HTN, Smoking, COPD, CAD, Cancer, CVA, ARF, Chemo, Hep., AIDS, mental health diagnosis, sleep apnea, morbid obesity)? @ -None Was patient admitted / discharged? Hospital course, mention meds given and route, prescriptions, significant lab abnormalities, going to OR and other pertinent info. @ -Received a dose of Neurontin Dilaudid and Toradol and was feeling considerably better and wanted to be discharged home at this time Undiagnosed new problem with uncertain prognosis? @ -No Drug Therapy requiring intensive monitoring for toxicity (Heparin, Nitro, Insulin, Cardizem)? @ -No Were any procedures done? @ -No Diagnosis/symptom? @ -Chronic neuropathy Acute, or Chronic, or Acute on Chronic? @ -Chronic Uncomplicated (without systemic symptoms) or Complicated (systemic symptoms)? @ -Uncomplicated Side effects of treatment? @ -No Exacerbation, Progression, or Severe Exacerbation? @ -No Poses a threat to life or bodily function? How? (Chest pain, [place], [place], pneumonia, PE, COPD, DKA, ARF, appy, cholecystitis, CVA, Diverticulitis, Homicidal, Suicidal, threat to staff... and all critical care pts) @ -No Disposition Clinical Impression: Neuropathy Disposition: HOME SELF-CARE Condition: Good Additional Instructions: Patient should take Tylenol with codeine for breakthrough pain. Is patient prescribed a controlled substance at d/c from ED?: No Referrals: Elizabeth Christina MD [Primary Care Provider] - 1-2 days Time of Disposition: 15:33
[2023-08-10 14:19] VITALS: RESP 18
[2023-08-10] MEDS ORDERED: ACET/COD 300 MG/30 MG STARTER PACK 6 TAB BTL PO STA (15:34)
[2023-08-10 15:57] VITALS: BP 144/62; PULSE 78
== END 2023-08-10 15:48 | disposition home or self-care (01) ==
LOC: EC 12:02
DX: G62.9 Polyneuropathy, unspecified (principal); E78.5 Hyperlipidemia, unspecified; I48.91 Unspecified atrial fibrillation; I10 Essential (primary) hypertension; Z79.82 Long term (current) use of aspirin; Z87.891 Personal history of nicotine dependence; Z79.899 Other long term (current) drug therapy; Z91.041 Radiographic dye allergy status
CPT/HCPCS: 99284; 96374; 96375; J1885; J1170

== ENCOUNTER 2023-12-22 18:19 | Emergency (ER) | payer MEDICARE, BC ==
--- NOTE | 2023-12-22 19:03 | ED ---
Chest Pain HPI - General Chief Complaint: Chest Pain Stated Complaint: CHEST PAIN Time Seen by Provider: 12/22/23 18:38 Source: EMS, RN notes reviewed, old records reviewed Mode of arrival: EMS Limitations: no limitations - History of Present Illness Initial Comments: This is a 73-year-old male to ER for evaluation today. He comes in today for evaluation of multiple complaints including chest pain shortness of breath difficulty breathing cough and congestion for days now. He has history of underlying heart disease history of A-fib does feel like his heart is racing with palpitations. No fevers no travel history no sick contacts. MD Complaint: chest pain, other (Upper respiratory infection cough and congestion) -: days(s) Onset: during rest, during exertion Pain Location: substernal, left chest Pain Radiation: none Severity: moderate Severity scale (1-10): 4 Consistency: intermittent Improves With: nothing Worsens With: nothing Anginal Symptoms: dyspnea Other Symptoms: palpitations Treatments Prior to Arrival: none - Related Data Home Medications Medication Instructions Recorded Confirmed Bumetanide [BUMEX] 1 mg PO DAILY 07/05/14 12/22/23 amLODIPine BESYLATE/BENAZEPRIL 1 cap PO HS 07/05/14 12/22/23 [Amlodipine-Benazepril 5-20 mg] Apixaban [Eliquis] 5 mg PO BID 02/28/15 12/22/23 Rosuvastatin Calcium [Crestor] 5 mg PO DAILY 12/22/20 12/22/23 carvediloL [Coreg] 18.75 mg PO BID-W/MEALS 12/22/20 12/22/23 Gabapentin 800 mg PO TID 12/22/23 12/22/23 HYDROcodone/APAP 5-325MG [[place] 1 tab PO BID PRN 12/22/23 12/22/23 5-325] Effie-3/Dha/Epa/Fish Oil [Fish Oil 3 cap PO DAILY 12/22/23 12/22/23 1,000 mg Softgel] Allergies Allergy/AdvReac Type Severity Reaction Status Date / Time Iodinated Contrast Media Allergy Rash/Hives Verified 12/22/23 20:38 iodine Allergy Rash/Hives Verified 12/22/23 20:38 Review of Systems ROS Statement: Those systems with pertinent positive or pertinent negative responses have been documented in the HPI. ROS Other: All systems not noted in ROS Statement are negative. EKG Findings - EKG Comments: EKG Findings:: EKG is A-fib 107 QRS 133 QTc 420 - EKG Results: EKG: interpreted by PAT Past Medical History Past Medical History: Atrial Fibrillation, Hyperlipidemia, Hypertension, Osteoarthritis (OA) Additional Past Medical History / Comment(s): recieved three COVID vaccines, Hx aortic aneursym, fractured left ribs & clavicle. Pre Diabetes. History of Any Multi-Drug Resistant Organisms: None Reported Past Surgical History: Cholecystectomy, Joint Replacement, Tonsillectomy Additional Past Surgical History / Comment(s): Total left knee replacement, AAA repair, "aorta repair". Past Anesthesia/Blood Transfusion Reactions: No Reported Reaction Past Psychological History: No Psychological Hx Reported Smoking Status: Former smoker Past Alcohol Use History: Occasional Past Drug Use History: None Reported - Past Family History Father Family Medical History: COPD Additional Family Medical History / Comment(s): Father of emphysema. He was a smoker. Mother Family Medical History: Congestive Heart Failure (CHF) Additional Family Medical History / Comment(s): Mother of CHF. General Exam Limitations: no limitations General appearance: alert, in no apparent distress, anxious Head exam: Present: atraumatic, normocephalic, normal inspection Eye exam: Present: normal appearance, PERRL, EOMI. Absent: scleral icterus, conjunctival injection, periorbital swelling ENT exam: Present: normal exam, mucous membranes moist Neck exam: Present: normal inspection. Absent: tenderness, meningismus, lymphadenopathy Respiratory exam: Present: normal lung sounds bilaterally. Absent: respiratory distress, wheezes, rales, rhonchi, stridor Cardiovascular Exam: Present: tachycardia, irregular rhythm, normal heart sounds. Absent: systolic murmur, diastolic murmur, rubs, gallop, clicks GI/Abdominal exam: Present: soft, normal bowel sounds. Absent: distended, ten derness, guarding, rebound, rigid Extremities exam: Present: normal inspection, full ROM, normal capillary refill. Absent: tenderness, pedal edema, joint swelling, calf tenderness Back exam: Present: normal inspection Neurological exam: Present: alert, oriented X3, CN II-XII intact Psychiatric exam: Present: normal affect, normal mood Skin exam: Present: warm, dry, intact, normal color. Absent: rash Course Vital Signs 12/22/23 12/22/23 12/22/23 18:44 20:15 21:55 Pulse Rate 101 H 117 H 91 Respiratory 18 20 18 Rate Blood Pressure 188/98 180/88 O2 Sat by Pulse 87 L 93 L 95 Oximetry - Reevaluation(s) Reevaluation #1: Medical records reviewed Reevaluation #2: Patient symptoms unchanged Reevaluation #3: Patient informed of results and questions answered Studies Chest x-ray is negative for acute disease Reevaluation #4: Was pt. sent in by a medical professional or institution (, [facility], SANITARIAN INSPECTOR, urgent care, hospital, or assisted...) When possible be specific @ -no Did you speak to anyone other than the patient for history (EMS, parent, family, police, friend...)? What history was obtained from this source @ -no Did you review nursing and triage notes (agree or disagree)? Why? @ -agree Are old charts reviewed (outside hosp., previous admission, EMS record, old EKG, old radiological studies, urgent care reports/EKG's, assisted records)? Report findings @ -yes Differential Diagnosis (chest pain, altered mental status, abdominal pain women, abdominal pain men, vaginal bleeding, weakness, fever, dyspnea, syncope, headache, dizziness, GI bleed, back pain, seizure, CVA, palpatations, mental health, musculoskeletal)? @ -prior EKG interpreted by me (3pts min.). @ -yes X-rays interpreted by me (1pt min.). @ -yes negative for acute disease CT interpreted by me (1pt min.). @ -no U/S interpreted by me (1pt. min.). @ -no What testing was considered but not performed or refused? (CT, X-rays, U/S, labs)? Why? @ -none What meds were considered but not given or refused? Why? @ -none Did you discuss the management of the patient with other professionals (professionals i.e. [facility] [place], SANITARIAN INSPECTOR, lab, RT, psych nurse, social security assessor, asbestos wire finisher, teacher, correctional officer captain, correctional case manager)? Give summary @ -no Was smoking cessation discussed for >3mins.? @ -no Was critical care preformed (if so, how long)? @ -no Were there social determinants of health that impacted care today? How? (Homelessness, low income, unemployed, alcoholism, drug addiction, transportation, low edu. Level, literacy, decrease access to med. care, halfway, rehab)? @ -none Was there de-escalation of care discussed even if they declined (Discuss DNR or withdrawal of care, Hospice)? DNR status @ -no What co-morbidities impacted this encounter? (DM, HTN, Smoking, COPD, CAD, Cancer, CVA, ARF, Chemo, Hep., AIDS, mental health diagnosis, sleep apnea, morbid obesity)? @ -none Was patient admitted / discharged? Hospital course, mention meds given and route, prescriptions, significant lab abnormalities, going to OR and other pertinent info. @ - 73 male to ER with chest pain. Chest pain with cough and congestion. No acute cause of symptoms found here in the ER and can be discharged home Discharge Undiagnosed new problem with uncertain prognosis? @ -no Drug Therapy requiring intensive monitoring for toxicity (Heparin, Nitro, Insulin, Cardizem)? @ -no Were any procedures done? @ -no Diagnosis/symptom? @ -Chest pain Acute, or Chronic, or Acute on Chronic? @ -Acute Uncomplicated (without systemic symptoms) or Complicated (systemic symptoms)? @ -Complicated Side effects of treatment? @ -no Exacerbation, Progression, or Severe Exacerbation? @ -exacerbation Poses a threat to life or bodily function? How? (Chest pain, [place], [place], pneumonia, PE, COPD, DKA, ARF, appy, cholecystitis, CVA, Diverticulitis, Homicidal, Suicidal, threat to staff... and all critical care pts) @ -yes significant arrhythmia and chest pain Reevaluation #5: Differential Chest Pain: Stable Angina, Unstable Angina, STEMI, NSTEMI Aortic Dissection, Pneumothorax, Musculoskeletal, Esophageal Spasm GERD, Cholecystitis, Pancreatitis, Zoster, this is not meant to be an all-inclusive list. Chest Pain MDM - MDM 73 male to ER with chest pain. Chest pain with cough and congestion. No acute cause of symptoms found here in the ER and can be discharged home Disposition Clinical Impression: Atypical chest pain, Chest pain Disposition: HOME SELF-CARE Condition: Good Instructions (If sedation given, give patient instructions): Chest Pain (ED) Is patient prescribed a controlled substance at d/c from ED?: No Referrals: Elizabeth Christina MD [Primary Care Provider] - 1-2 days Time of Disposition: 21:30
[2023-12-22 19:29] LABS: Basophils % (A) 1 %; Eosinophils # (A) 0.1 k/uL (0-0.7); Eosinophils % (A) 1 %; HCT 41.9 % (39.0-53.0); HGB 13.7 gm/dL (13.0-17.5); Lymphocytes # (A) 0.4 k/uL (1.0-4.8); Lymphocytes % (A) 8 %; MCH 32.2 pg (25.0-35.0); MCHC 32.8 g/dL (31.0-37.0); MCV 98.1 fL (80.0-100.0); Mean Platelet Volume 7.8; Monocytes # (A) 0.2 k/uL (0-1.0); Monocytes % (A) 3 %; Neutrophils # (A) 4.2 k/uL (1.3-7.7); Neutrophils % (A) 86 %; Platelet Count 124 k/uL (150-450); RBC 4.27 m/uL (4.30-5.90); RDW 12.6 % (11.5-15.5); WBC 4.9 k/uL (3.8-10.6)
[2023-12-22 19:33] LABS: ALT 16 U/L (4-49); AST 25 U/L (17-59); African American GFR (CKD) >90 (>60 ml/min/1.73 sqM); Albumin 4.3 g/dL (3.5-5.0); Alkaline Phosphatase 64 U/L (38-126); Anion Gap 9 mmol/L; Blood Urea Nitrogen 20 mg/dL (9-20); Calcium 9.2 mg/dL (8.4-10.2); Carbon Dioxide 26 mmol/L (22-30); Chloride 102 mmol/L (98-107); Glucose 161 mg/dL (74-99); Magnesium 1.5 mg/dL (1.6-2.3); Non-African American GFR(CKD) >90 (>60 ml/min/1.73 sqM); Phosphorus 3.1 mg/dL (2.5-4.5); Potassium 4.1 mmol/L (3.5-5.1); Sodium 137 mmol/L (137-145); Total Bilirubin 0.7 mg/dL (0.2-1.3); Total Protein 7.5 g/dL (6.3-8.2)
[2023-12-22 19:37] LABS: INR 1.1 (<1.2); Partial Thromboplastin Time 27.5 sec (22.0-30.0)
[2023-12-22 19:42] LABS: NT-Pro-B-Type Natriuretic Pept 2530 pg/mL
[2023-12-22] MEDS: MORPHINE SULFATE 4 MG/ML SYRINGE IV STA (19:43)
[2023-12-22] MEDS: SODIUM CHLORIDE 0.9% 500 ML 500 ML IV STA (19:46)
[2023-12-22 19:49] LABS: Appearance,Urine Clear (Clear); Bilirubin,Urine Negative (Negative); Blood,Urine Small (Negative); Color,Urine Yellow; Glucose,Urine (UA) Trace (Negative); Hyaline Casts,Urine 1 /lpf (0-2); Ketones,Urine 1+ (Negative); Leukocyte Esterase,Urine Negative (Negative); Mucus,Urine Few /hpf; Nitrite,Urine Negative (Negative); Protein,Urine 3+ (Negative); RBC,Urine 4 /hpf (0-5); Specific Gravity,Urine 1.021 (1.001-1.035); Urobilinogen,Urine <2.0 mg/dL (<2.0); WBC,Urine 1 /hpf (0-5)
--- NOTE | 2023-12-22 20:00 | XR ---
EXAMINATION TYPE: XR chest 1V portable DATE OF EXAM: 12/22/2023 Comparison: 02/22/2018 Clinical History: 73-year-old male cp Findings: Median sternotomy wires are present. Heart mildly enlarged. Old healed fracture deformities left jacqui thorax. Suspect chronic posttraumatic volume loss left hemithorax, unchanged from 2018. Some mild pat amber densities throughout the left lung could reflect some atelectasis or scarring. Right lung and ple ural space are clear. No pleural effusion. Impression: Mild cardiomegaly and chronic posttraumatic deformity left hemithorax. Suspect underlying mild scarri ng/atelectasis left lung. No definite acute change.
[2023-12-22] MEDS: HYDROmorphone 1 MG/ML 1 ML SYRINGE IVP STA (21:33)
[2023-12-22] MEDS: LORazepam 2 MG/ML INJ IV STA (21:35)
[2023-12-22 22:12] VITALS: BP 180/88; PULSE 91; RESP 18
== END 2023-12-22 23:00 | disposition home or self-care (01) ==
LOC: EC 18:19
DX: R07.89 Other chest pain (principal); R00.0 Tachycardia, unspecified; R05.9 Cough, unspecified; R09.81 Nasal congestion; I10 Essential (primary) hypertension; I48.91 Unspecified atrial fibrillation; E78.5 Hyperlipidemia, unspecified; M19.90 Unspecified osteoarthritis, unspecified site; Z79.01 Long term (current) use of anticoagulants; Z79.899 Other long term (current) drug therapy; Z87.891 Personal history of nicotine dependence; Z88.8 Allergy status to other drugs, medicaments and biological substances; Z91.041 Radiographic dye allergy status; Z90.49 Acquired absence of other specified parts of digestive tract
CPT/HCPCS: 36415; 93005; 83880; 80053; 83605; 83735; 84100; 84443; 84484; 85025; 85610; 85730; 81001; 71045; 99285; 96374; 96375 ×2; 96361; J2060; J2270; J1170

== ENCOUNTER → 2024-02-11 | Outpatient (CLI) | payer MEDICARE, BC ==
[2024-02-11 10:17] LABS: Blood Urea Nitrogen 17.6 mg/dL (9.0-27.0); Calcium 10.1 mg/dL (8.7-10.3); Carbon Dioxide 24.7 mmol/L (21.6-31.8); Chloride 105 mmol/L (96-109); Glucose 140 mg/dL (70-110); NT-Pro-B-Type Natriuretic Pept 1131 pg/mL (0-125); Sodium 140 mmol/L (135-145)
== END | disposition home or self-care (01) ==
LOC: LABWHC1 06:53
PROVIDERS: ATTEND Internal Medicine
DX: I50.42 Chronic combined systolic (congestive) and diastolic (congestive) heart failure (principal)
CPT/HCPCS: 36415; 80048; 83880

== ENCOUNTER → 2024-03-07 | Outpatient (CLI) | payer MEDICARE, BC ==
[2024-03-07 15:44] LABS: Blood Urea Nitrogen 22.4 mg/dL (9.0-27.0); Calcium 9.6 mg/dL (8.7-10.3); Carbon Dioxide 24.5 mmol/L (21.6-31.8); Chloride 102 mmol/L (96-109); Glucose 97 mg/dL (70-110); Potassium 4.6 mmol/L (3.5-5.5); Sodium 139 mmol/L (135-145)
[2024-03-07 15:46] LABS: NT-Pro-B-Type Natriuretic Pept 2393 pg/mL (0-125)
== END | disposition home or self-care (01) ==
LOC: LABWHC1 11:17
PROVIDERS: ATTEND Internal Medicine
DX: I42.8 Other cardiomyopathies (principal); I50.9 Heart failure, unspecified; I51.9 Heart disease, unspecified
CPT/HCPCS: 36415; 80048; 83880

== ENCOUNTER → 2024-06-09 | Outpatient (CLI) | payer MEDICARE, BC ==
[2024-06-09 10:54] LABS: Blood Urea Nitrogen 24.4 mg/dL (9.0-27.0); Calcium 9.7 mg/dL (8.7-10.3); Chloride 102 mmol/L (96-109); Glucose 141 mg/dL (70-110); Potassium 4.6 mmol/L (3.5-5.5); Sodium 139 mmol/L (135-145)
== END | disposition home or self-care (01) ==
LOC: LABWHC1 06:48
PROVIDERS: ATTEND Internal Medicine
DX: I50.42 Chronic combined systolic (congestive) and diastolic (congestive) heart failure (principal)
CPT/HCPCS: 36415; 80048

== ENCOUNTER → 2024-06-16 | Outpatient (CLI) | payer MEDICARE, BC | END | disposition home or self-care (01) | LOC: LABPRL 10:36 | PROVIDERS: ATTEND Internal Medicine | DX: E78.2 Mixed hyperlipidemia | CPT/HCPCS: 80053; 80061; 82306; 83036; 83735; 84443; 84550; 85025 ==

== ENCOUNTER → 2024-09-12 | Outpatient (CLI) | payer MEDICARE, BC ==
[2024-09-12 15:22] LABS: Blood Urea Nitrogen 28.3 mg/dL (9.0-27.0); Calcium 9.5 mg/dL (8.7-10.3); Carbon Dioxide 25.4 mmol/L (21.6-31.8); Chloride 103 mmol/L (96-109); Glucose 87 mg/dL (70-110); Potassium 4.3 mmol/L (3.5-5.5); Sodium 141 mmol/L (135-145)
[2024-09-12 16:01] LABS: NT-Pro-B-Type Natriuretic Pept 1798 pg/mL (0-450)
== END | disposition home or self-care (01) ==
LOC: LABWHC1 08:57
PROVIDERS: ATTEND Internal Medicine
DX: I50.42 Chronic combined systolic (congestive) and diastolic (congestive) heart failure (principal); I50.9 Heart failure, unspecified; I51.9 Heart disease, unspecified; I42.8 Other cardiomyopathies
CPT/HCPCS: 36415; 80048; 83880

== ENCOUNTER → 2024-09-20 | Outpatient (CLI) | payer MEDICARE, BC ==
[2024-09-20 11:39] LABS: BUN/Creat Ratio 27.18 Ratio (12.00-20.00); Blood Urea Nitrogen 29.9 mg/dL (9.0-27.0); Calcium 9.6 mg/dL (8.7-10.3); Carbon Dioxide 26.5 mmol/L (21.6-31.8); Chloride 102 mmol/L (96-109); Glucose 159 mg/dL (70-110); Potassium 4.7 mmol/L (3.5-5.5); Sodium 138 mmol/L (135-145)
== END | disposition home or self-care (01) ==
LOC: LABWHC1 07:22
PROVIDERS: ATTEND Internal Medicine
DX: I50.42 Chronic combined systolic (congestive) and diastolic (congestive) heart failure (principal); I42.8 Other cardiomyopathies; I51.9 Heart disease, unspecified
CPT/HCPCS: 36415; 80048

== ENCOUNTER → 2024-09-28 | Outpatient (CLI) | payer MEDICARE, BC ==
[2024-09-28 10:28] LABS: Blood Urea Nitrogen 26.3 mg/dL (9.0-27.0); Calcium 9.3 mg/dL (8.7-10.3); Carbon Dioxide 25.5 mmol/L (21.6-31.8); Chloride 102 mmol/L (96-109); Glucose 146 mg/dL (70-110); Potassium 4.2 mmol/L (3.5-5.5); Sodium 139 mmol/L (135-145)
== END | disposition home or self-care (01) ==
LOC: LABWHC1 06:57
PROVIDERS: ATTEND Internal Medicine
DX: I50.42 Chronic combined systolic (congestive) and diastolic (congestive) heart failure (principal); I42.8 Other cardiomyopathies; I51.9 Heart disease, unspecified
CPT/HCPCS: 36415; 80048